=== PATIENT | female | born 1955 | race African-American/Black ===

== ENCOUNTER 2020-06-28 09:55 | Emergency (ER) | payer MEDICARE, MEDICAID ==
[~2020-06-28] VITALS: Ht 170.2 cm; Wt 89.7 kg
[2020-06-28] MEDS ORDERED: NALOXONE HCL 1 MG/ML 2ML VIAL ONE (10:03)
[2020-06-28] MEDS ORDERED: PROPOFOL 10MG/ML 100ML 100 ML IV ONE ×2 (10:12→13:06)
[2020-06-28 10:23] LABS: BASOPHILS % 0.5 % (0.0-2.0); EOSINOPHILS % 1.4 % (0.0-5.0); HEMATOCRIT. 39.8 % (36.0-48.0); LYMPHOCYTES % 11.4 % (20.0-50.0); MEAN CORPUSCULAR HEMOGLOBIN 28.4 pg (28.0-32.0); MEAN PLATELET VOLUME 8.5 fl (7.4-10.4); MONOCYTES % 4.8 % (2.0-8.0); NEUTROPHILS % 81.9 % (40.0-76.0); PLATELET 295 x1000/uL (130-400); RED BLOOD CELL COUNT 4.57 mill/uL (4.2-5.4); RED CELL DISTRIBUTION WIDTH 14.5 % (11.6-14.6)
[2020-06-28 10:31] LABS: CHLORIDE 102 mEq/L (98-107)
[2020-06-28 10:33] LABS: PROTHROMBIN TIME 10.6 sec (9.6-11.0)
[2020-06-28 10:36] LABS: ETHANOL BLOOD < 10 mg/dL
[2020-06-28 10:38] LABS: LDL CHOLESTEROL 100 mg/dL (5-100)
[2020-06-28] MEDS ORDERED: NICARDIPINE 50 MG in SODIUM CHLORIDE 0.9% 230 ML IV PRN (10:45)
[2020-06-28] MEDS ORDERED: NICARDIPINE 40MG/200ML PREMIX 200 ML IV SCH (10:46)
[2020-06-28] MEDS ORDERED: IOHEXOL-350 100 ML BOTTLE ONE (10:56)
[2020-06-28] MEDS ORDERED: LABETALOL 5MG/ML SYR 20 MG/4 ML SYRINGE IV ONE (11:15)
[2020-06-28 11:36] LABS: CLARITY URINE CLEAR (CLEAR); COLOR URINE YELLOW (YELLOW); KETONES URINE NEGATIVE (NEGATIVE); LEUKOCYTE ESTERASE URINE NEGATIVE (NEGATIVE); NITRITE URINE NEGATIVE (NEGATIVE); OCCULT BLOOD URINE 1+ (NEGATIVE); PH URINE 8.5 (4.5-8.0); PROTEIN URINE 3+ (NEGATIVE); SPECIFIC GRAVITY URINE 1.015 (1.005-1.030); UROBILINOGEN URINE 0.2 E.U./dL (0.2-1.0)
[2020-06-28 12:30] VITALS: BP 160/78
[2020-06-28] MEDS ORDERED: PROPOFOL 10MG/ML 100ML 100 ML IV SCH (13:00)
[2020-06-28 13:33] LABS: *AMPHETAMINES SCREEN URINE NEGATIVE (NEGATIVE); *BARBITURATES SCREEN URINE NEGATIVE (NEGATIVE); *BENZODIAZEPINES SCREEN URINE NEGATIVE (NEGATIVE); *COCAINE SCREEN URINE NEGATIVE (NEGATIVE); METHADONE URINE SCREEN NEGATIVE (NEGATIVE); OPIATES URINE SCREEN PRESUMTIVE POSITIVE (NEGATIVE)
[2020-06-28 13:34] LABS: CANNABINOID URINE SCREEN PRESUMTIVE POSITIVE (NEGATIVE); PHENCYCLIDINE URINE SCREEN NEGATIVE (NEGATIVE)
== END 2020-06-28 12:30 | disposition short-term general hospital (02) ==
LOC: ER 10:03 → CANBEDREQ 13:15
DX: I72.8 Aneurysm of other specified arteries (principal); I60.9 Nontraumatic subarachnoid hemorrhage, unspecified; R40.2430 Glasgow coma scale score 3-8, unspecified time; E11.9 Type 2 diabetes mellitus without complications; I10 Essential (primary) hypertension; E66.9 Obesity, unspecified
CPT/HCPCS: 31500; 36415; 70450; 70496; 70498; 71045; 80053; 80305; 80320; 81003; 82962; 83721; 84484; 85025; 85610; 93005; 94002; 96374; 96375; 99285; J2310; J2704; J3490; Q9967; G0480

== ENCOUNTER 2021-06-04 12:22 | Inpatient (IN) | payer MEDICARE, MEDICAID ==
[~2021-06-04] VITALS: Ht 165.1 cm; Wt 69.9 kg
[2021-06-04 13:09] LABS: BG BASE EXCESS 3.3 mmol/L (-2.0-2.0); BG CARBOXYHEMOGLOBIN 0.3 % (0.5-1.5); BG DEOXYHEMOGLOBIN 28.1 % (0.0-5.0); BG HCO3 ACT 27.4 mmol/L (22.0-26.0); BG METHEMOGLOBIN 0.1 % (0.0-1.5); BG OXYGEN SATURATION 71.8 % (92.0-98.5); BG OXYHEMOGLOBIN 71.5 % (94.0-97.0); BG PCO2 40.2 mmHg (35.0-45.0); BG PH 7.452 (7.350-7.450); BG PO2 39.6 mmHg (75.0-100.0); BG TOTAL HEMOGLOBIN 11.2 g/dL (12.0-18.0); BG VENT MODE MASK - NRB
[2021-06-04] MEDS ORDERED: SUCCINYLCHOLINE CHLORIDE 200MG/10ML IV ONE (13:30)
[2021-06-04] MEDS ORDERED: MIDAZOLAM HCL 2 MG/2 ML VIAL IV ONE (13:30)
[2021-06-04] MEDS ORDERED: MIDAZOLAM HCL 100 MG in DEXT 5% WATER 80 ML IV ONE (13:30)
[2021-06-04] MEDS ORDERED: MIDAZOLAM HCL 100 MG in SODIUM CHLORIDE 0.9% 100 ML IV PRN (13:30)
[2021-06-04] MEDS ORDERED: ETOMIDATE 2MG/ML 10ML VIAL IV ONE (13:30)
[2021-06-04] MEDS ORDERED: ATROPINE SULFATE 1MG/ML VIAL IV ONE (14:00)
[2021-06-04 14:04] LABS: BASOPHILS % 0.3 % (0.0-2.0); HEMOGLOBIN. 10.6 g/dL (12.0-16.0); LYMPHOCYTES % 16.7 % (20.0-50.0); MEAN CORPUSCULAR HEMOGLOBIN 27.7 pg (28.0-32.0); MEAN CORPUSCULAR VOLUME 83.9 fL (81.0-99.0); MEAN PLATELET VOLUME 6.8 fl (7.4-10.4); MONOCYTES % 6.7 % (2.0-8.0); NEUTROPHILS % 75.3 % (40.0-76.0); PLATELET 528 x1000/uL (130-400); RED BLOOD CELL COUNT 3.81 mill/uL (4.2-5.4); RED CELL DISTRIBUTION WIDTH 18.9 % (11.6-14.6)
[2021-06-04 14:11] LABS: CHLORIDE 103 mEq/L (98-107)
[2021-06-04] MEDS ORDERED: ATROPINE SULFATE 1MG/10ML SYR IV NR (14:15)
[2021-06-04 14:16] LABS: D-DIMER 0.99 mg/L FEU (<0.50); INR 1.1; PROTHROMBIN TIME 11.9 sec (9.6-11.0)
[2021-06-04 14:20] LABS: CREATINE KINASE 90 IU/L (26-192)
[2021-06-04] MEDS ORDERED: FENTANYL CITRATE/PF 2,500 MCG in SODIUM CHLORIDE 0.9% 200 ML IV PRN (16:30)
[2021-06-04 16:59] LABS: BG BASE EXCESS 4.4 mmol/L (-2.0-2.0); BG CARBOXYHEMOGLOBIN 0.2 % (0.5-1.5); BG DEOXYHEMOGLOBIN 0.5 % (0.0-5.0); BG FRACTION INSPIRED OXYGEN 100; BG METHEMOGLOBIN 0.5 % (0.0-1.5); BG OXYGEN SATURATION 99.5 % (92.0-98.5); BG OXYHEMOGLOBIN 98.8 % (94.0-97.0); BG PCO2 33.1 mmHg (35.0-45.0); BG PH 7.529 (7.350-7.450); BG PO2 190.1 mmHg (75.0-100.0); BG SAMPLE SITE LEFT BRACHIAL; BG TOTAL HEMOGLOBIN 11.3 g/dL (12.0-18.0); BG VENT MODE VENT - AC
[2021-06-04] MEDS ORDERED: ONDANSETRON HCL 4MG/2ML INJ IV PRN (17:00)
[2021-06-04] MEDS ORDERED: CEFTRIAXONE 1 G PREMIX 50 ML IV SCH (17:00)
[2021-06-04] MEDS ORDERED: ACETAMINOPHEN 325MG TABLET PO PRN (17:00)
[2021-06-04] MEDS ORDERED: GUAIFENESIN 200MG/10ML SUGAR FREE UDC PO PRN (17:00)
[2021-06-04] MEDS ORDERED: DOCUSATE SODIUM 100MG CAPSULE PO PRN (17:00)
[2021-06-04] MEDS ORDERED: ENOXAPARIN 40MG/0.4ML SYR SUBCUT SCH (17:00)
[2021-06-04] MEDS: FUROSEMIDE 40MG/4ML VIAL IV SCH (17:09)
[2021-06-04] MEDS ORDERED: DEXTROSE 50% WATER 50ML SYRINGE IV PRN (17:30)
[2021-06-04] MEDS ORDERED: AZITHROMYCIN 500 MG in DEXT 5% WATER 250 ML IV SCH (18:00)
[2021-06-04] MEDS: SPIRONOLACTONE 25MG TABLET PO SCH (18:17)
[2021-06-04] MEDS ORDERED: INSULIN LISPRO 100 UNITS/ML SUBCUT SCH (18:20)
[2021-06-04 19:26] LABS: CLARITY URINE TURBID (CLEAR); COLOR URINE YELLOW (YELLOW); KETONES URINE NEGATIVE (NEGATIVE); LEUKOCYTE ESTERASE URINE 3+ (NEGATIVE); NITRITE URINE POSITIVE (NEGATIVE); OCCULT BLOOD URINE 2+ (NEGATIVE); PH URINE >=9.0 (4.5-8.0); PROTEIN URINE 2+ (NEGATIVE); SPECIFIC GRAVITY URINE 1.013 (1.005-1.030)
[2021-06-04] MEDS: IPRATROPIUM/ALBUTEROL 0.5-3(2.5)MG/3ML NEB HHN SCH ×2 (20:11→23:50)
[2021-06-04] MEDS: INSULIN LISPRO 100 UNITS/ML SUBCUT SCH (21:00)
[2021-06-04] MEDS: BLOOD SUGAR DIAGNOSTIC STRIP TEST SCH (21:11)
[2021-06-04 23:19] LABS: CREATINE KINASE MB FRACTION 1.1 ng/mL (0.5-3.6)
[2021-06-04] MEDS ORDERED: IOHEXOL-350 100 ML BOTTLE ONE (23:29)
[2021-06-04 23:30] VITALS: BP 139/52
[2021-06-05] VITALS (57 sets, daily range): BP systolic 77–161; BP diastolic 54–105
[2021-06-05] MEDS: IPRATROPIUM/ALBUTEROL 0.5-3(2.5)MG/3ML NEB HHN SCH ×4 (03:48→22:00)
[2021-06-05 05:42] LABS: CHLORIDE 103 mEq/L (98-107)
[2021-06-05 05:50] LABS: LDL CHOLESTEROL 37 mg/dL (5-100)
[2021-06-05 05:51] LABS: BASOPHILS % 0.3 % (0.0-2.0); CREATINE KINASE 127 IU/L (26-192); CREATINE KINASE MB FRACTION 1.8 ng/mL (0.5-3.6); EOSINOPHILS % 0.3 % (0.0-5.0); HDL CHOLESTEROL 55 mg/dL (40-59); HEMATOCRIT. 35.4 % (36.0-48.0); HEMOGLOBIN. 11.6 g/dL (12.0-16.0); LYMPHOCYTES % 10.5 % (20.0-50.0); MEAN CORPUSCULAR HEMOGLOBIN 27.6 pg (28.0-32.0); MEAN CORPUSCULAR VOLUME 83.7 fL (81.0-99.0); MEAN PLATELET VOLUME 6.8 fl (7.4-10.4); MONOCYTES % 4.5 % (2.0-8.0); NEUTROPHILS % 84.4 % (40.0-76.0); PLATELET 442 x1000/uL (130-400); RED BLOOD CELL COUNT 4.23 mill/uL (4.2-5.4); RED CELL DISTRIBUTION WIDTH 19.1 % (11.6-14.6)
[2021-06-05] MEDS: INSULIN LISPRO 100 UNITS/ML SUBCUT SCH ×4 (07:00→21:00)
[2021-06-05] MEDS: BLOOD SUGAR DIAGNOSTIC STRIP TEST SCH ×4 (07:12→21:00)
[2021-06-05] MEDS: SPIRONOLACTONE 25MG TABLET PO SCH (08:47)
[2021-06-05] MEDS: FUROSEMIDE 40MG/4ML VIAL IV SCH ×2 (08:47→18:34)
[2021-06-05 09:47] LABS: BG BASE EXCESS 3.1 mmol/L (-2.0-2.0); BG CARBOXYHEMOGLOBIN 0.1 % (0.5-1.5); BG DEOXYHEMOGLOBIN 0.6 % (0.0-5.0); BG FRACTION INSPIRED OXYGEN 90; BG METHEMOGLOBIN 0.3 % (0.0-1.5); BG OXYGEN SATURATION 99.4 % (92.0-98.5); BG PCO2 29.7 mmHg (35.0-45.0); BG PH 7.543 (7.350-7.450); BG PO2 256.7 mmHg (75.0-100.0); BG SAMPLE SITE RIGHT BRACHIAL; BG TOTAL HEMOGLOBIN 11.7 g/dL (12.0-18.0); BG VENT MODE VENT - AC
[2021-06-05] MEDS: ASPIRIN 81MG TABLET PO SCH (10:38)
[2021-06-05] MEDS: METOPROLOL TARTRATE 25MG TABLET PO SCH ×2 (10:38→21:03)
[2021-06-05] MEDS ORDERED: FURO-152 MT (11:30)
[2021-06-05] MEDS ORDERED: QUET25TA MT (11:30)
[2021-06-05] MEDS ORDERED: DULO20CA18 MT (11:30)
[2021-06-05] MEDS ORDERED: FLUT1BLS INH (11:30)
[2021-06-05] MEDS ORDERED: INSU100I13 SQ (11:30)
[2021-06-05] MEDS ORDERED: ALBU90AE INH (11:30)
[2021-06-05] MEDS ORDERED: LABE300T3 MT (11:30)
[2021-06-05] MEDS ORDERED: FAMO-135 MT (11:30)
[2021-06-05] MEDS ORDERED: DICL100G31 TP (11:30)
[2021-06-05] MEDS ORDERED: MINO10TA MT (11:30)
[2021-06-05] MEDS ORDERED: GABA-533 MT (11:30)
[2021-06-05] MEDS ORDERED: TIZA4CAP6 MT (11:30)
[2021-06-05] MEDS ORDERED: LIP40 MT (11:30)
[2021-06-05] MEDS ORDERED: AMLO10TA4 MT (11:30)
[2021-06-05] MEDS ORDERED: TIOT18CA3 INH (11:30)
[2021-06-05] MEDS: PANTOPRAZOLE SODIUM 40 MG/VIAL IV SCH (11:36)
[2021-06-05] MEDS: CEFTRIAXONE 1,000 MG in DEXTROSE 5% WATER 50 ML IV SCH (16:35)
[2021-06-05] MEDS ORDERED: FUROSEMIDE 40MG/4ML VIAL IV SCH (17:00)
[2021-06-05] MEDS: AZITHROMYCIN 500 MG in DEXT 5% WATER 250 ML IV SCH (18:34)
[2021-06-06] VITALS (54 sets, daily range): BP systolic 82–162; BP diastolic 55–105
[2021-06-06] MEDS: IPRATROPIUM/ALBUTEROL 0.5-3(2.5)MG/3ML NEB HHN SCH ×7 (01:18→23:55)
[2021-06-06] MEDS: FUROSEMIDE 40MG/4ML VIAL IV SCH (05:58)
[2021-06-06] MEDS: BLOOD SUGAR DIAGNOSTIC STRIP TEST SCH ×4 (06:30→21:00)
[2021-06-06] MEDS ORDERED: AMLODIPINE 5MG TABLET PO SCH (09:15)
[2021-06-06 09:48] LABS: BG BASE EXCESS 0.7 mmol/L (-2.0-2.0); BG CARBOXYHEMOGLOBIN 0.3 % (0.5-1.5); BG DEOXYHEMOGLOBIN 1.6 % (0.0-5.0); BG FRACTION INSPIRED OXYGEN 40; BG HCO3 ACT 23.9 mmol/L (22.0-26.0); BG METHEMOGLOBIN 0.1 % (0.0-1.5); BG OXYGEN SATURATION 98.4 % (92.0-98.5); BG PCO2 33.3 mmHg (35.0-45.0); BG PH 7.473 (7.350-7.450); BG PO2 126.2 mmHg (75.0-100.0); BG SAMPLE SITE RIGHT RADIAL; BG TOTAL HEMOGLOBIN 11.9 g/dL (12.0-18.0); BG VENT MODE VENT - AC
[2021-06-06] MEDS: SPIRONOLACTONE 25MG TABLET PO SCH (11:11)
[2021-06-06] MEDS: ASPIRIN 81MG TABLET PO SCH (11:11)
[2021-06-06] MEDS: PANTOPRAZOLE SODIUM 40 MG/VIAL IV SCH (11:12)
[2021-06-06 12:11] LABS: BG BASE EXCESS 0.2 mmol/L (-2.0-2.0); BG CARBOXYHEMOGLOBIN 0.6 % (0.5-1.5); BG DEOXYHEMOGLOBIN 10.3 % (0.0-5.0); BG FRACTION INSPIRED OXYGEN 40; BG HCO3 ACT 23.6 mmol/L (22.0-26.0); BG METHEMOGLOBIN 0.4 % (0.0-1.5); BG OXYGEN SATURATION 89.6 % (92.0-98.5); BG OXYHEMOGLOBIN 88.7 % (94.0-97.0); BG PCO2 34.3 mmHg (35.0-45.0); BG PH 7.456 (7.350-7.450); BG SAMPLE SITE RIGHT RADIAL; BG TOTAL HEMOGLOBIN 11.9 g/dL (12.0-18.0); BG VENT MODE VENT - CPAP
[2021-06-06] MEDS: AZITHROMYCIN 500 MG in DEXT 5% WATER 250 ML IV SCH (17:51)
[2021-06-06] MEDS: CEFTRIAXONE 1,000 MG in DEXTROSE 5% WATER 50 ML IV SCH (17:51)
[2021-06-06] MEDS: INSULIN LISPRO 100 UNITS/ML SUBCUT SCH (21:00)
[2021-06-06] MEDS: METOPROLOL TARTRATE 50MG TABLET PO SCH (21:18)
[2021-06-07] VITALS (49 sets, daily range): BP systolic 125–169; BP diastolic 67–113
[2021-06-07] MEDS: IPRATROPIUM/ALBUTEROL 0.5-3(2.5)MG/3ML NEB HHN SCH ×5 (04:01→20:40)
[2021-06-07] MEDS: INSULIN LISPRO 100 UNITS/ML SUBCUT SCH ×4 (07:00→21:00)
[2021-06-07] MEDS: BLOOD SUGAR DIAGNOSTIC STRIP TEST SCH ×4 (07:02→21:00)
[2021-06-07 08:17] LABS: BG BASE EXCESS 2.7 mmol/L (-2.0-2.0); BG CARBOXYHEMOGLOBIN 0.8 % (0.5-1.5); BG DEOXYHEMOGLOBIN 2.4 % (0.0-5.0); BG HCO3 ACT 27.2 mmol/L (22.0-26.0); BG METHEMOGLOBIN 0.5 % (0.0-1.5); BG OXYGEN SATURATION 97.6 % (92.0-98.5); BG OXYHEMOGLOBIN 96.3 % (94.0-97.0); BG PCO2 41.4 mmHg (35.0-45.0); BG PH 7.435 (7.350-7.450); BG PO2 96.9 mmHg (75.0-100.0); BG SAMPLE SITE RIGHT RADIAL; BG TOTAL HEMOGLOBIN 11.8 g/dL (12.0-18.0); BG VENT MODE NASAL CANNULA
[2021-06-07] MEDS: SPIRONOLACTONE 25MG TABLET PO SCH (09:26)
[2021-06-07] MEDS: ASPIRIN 81MG TABLET PO SCH (09:26)
[2021-06-07] MEDS: FUROSEMIDE 40MG TABLET PO SCH (09:26)
[2021-06-07] MEDS: METOPROLOL TARTRATE 50MG TABLET PO SCH ×2 (09:26→20:38)
[2021-06-07] MEDS: PANTOPRAZOLE SODIUM 40 MG/VIAL IV SCH (09:26)
[2021-06-07] MEDS: AMLODIPINE 10MG TABLET PO SCH (09:27)
[2021-06-07] MEDS: METRONIDAZOLE 500 MG PREMIX 100 ML IV SCH ×3 (09:34→21:59)
[2021-06-07 09:41] LABS: BASOPHILS % 0.6 % (0.0-2.0); EOSINOPHILS % 0.9 % (0.0-5.0); HEMATOCRIT. 38.5 % (36.0-48.0); HEMOGLOBIN. 12.6 g/dL (12.0-16.0); LYMPHOCYTES % 12.9 % (20.0-50.0); MEAN CORPUSCULAR HEMOGLOBIN 27.3 pg (28.0-32.0); MEAN CORPUSCULAR VOLUME 83.5 fL (81.0-99.0); MEAN PLATELET VOLUME 6.6 fl (7.4-10.4); MONOCYTES % 5.4 % (2.0-8.0); NEUTROPHILS % 80.2 % (40.0-76.0); PLATELET 518 x1000/uL (130-400); RED BLOOD CELL COUNT 4.61 mill/uL (4.2-5.4); RED CELL DISTRIBUTION WIDTH 19.5 % (11.6-14.6)
[2021-06-07 10:08] LABS: BG BASE EXCESS 2.4 mmol/L (-2.0-2.0); BG CARBOXYHEMOGLOBIN 0.3 % (0.5-1.5); BG DEOXYHEMOGLOBIN 0.6 % (0.0-5.0); BG HCO3 ACT 27.5 mmol/L (22.0-26.0); BG METHEMOGLOBIN 0.4 % (0.0-1.5); BG OXYGEN SATURATION 99.4 % (92.0-98.5); BG OXYHEMOGLOBIN 98.7 % (94.0-97.0); BG PCO2 44.2 mmHg (35.0-45.0); BG PH 7.411 (7.350-7.450); BG PO2 220.5 mmHg (75.0-100.0); BG SAMPLE SITE RIGHT RADIAL; BG TOTAL HEMOGLOBIN 12.1 g/dL (12.0-18.0); BG VENT MODE MASK - BIPAP
[2021-06-07] MEDS: HYDRALAZINE HCL 25MG TABLET PO SCH ×2 (10:32→17:35)
[2021-06-07] MEDS: CEFEPIME 1,000 MG in DEXTROSE 5% WATER 50 ML IV SCH ×2 (10:32→20:38)
[2021-06-08] VITALS (77 sets, daily range): BP systolic 94–147; BP diastolic 45–81
[2021-06-08] MEDS: IPRATROPIUM/ALBUTEROL 0.5-3(2.5)MG/3ML NEB HHN SCH ×6 (00:34→21:46)
[2021-06-08] MEDS: HYDRALAZINE HCL 25MG TABLET PO SCH ×3 (02:00→17:29)
[2021-06-08] MEDS: METRONIDAZOLE 500 MG PREMIX 100 ML IV SCH ×3 (05:11→21:26)
[2021-06-08 05:22] LABS: BASOPHILS % 0.3 % (0.0-2.0); HEMATOCRIT. 31.9 % (36.0-48.0); HEMOGLOBIN. 10.7 g/dL (12.0-16.0); LYMPHOCYTES % 10.5 % (20.0-50.0); MEAN CORPUSCULAR HEMOGLOBIN 27.9 pg (28.0-32.0); MEAN CORPUSCULAR VOLUME 83.2 fL (81.0-99.0); MEAN PLATELET VOLUME 6.6 fl (7.4-10.4); MONOCYTES % 4.2 % (2.0-8.0); PLATELET 492 x1000/uL (130-400); RED BLOOD CELL COUNT 3.84 mill/uL (4.2-5.4); RED CELL DISTRIBUTION WIDTH 19.6 % (11.6-14.6)
[2021-06-08] MEDS: INSULIN LISPRO 100 UNITS/ML SUBCUT SCH ×3 (06:22→17:00)
[2021-06-08] MEDS: BLOOD SUGAR DIAGNOSTIC STRIP TEST SCH ×3 (06:22→17:23)
[2021-06-08] MEDS: CEFEPIME 1,000 MG in DEXTROSE 5% WATER 50 ML IV SCH ×2 (09:35→20:31)
[2021-06-08] MEDS: FUROSEMIDE 40MG TABLET PO SCH (09:37)
[2021-06-08] MEDS: AMLODIPINE 10MG TABLET PO SCH (09:37)
[2021-06-08] MEDS: SPIRONOLACTONE 25MG TABLET PO SCH (09:37)
[2021-06-08] MEDS: ASPIRIN 81MG TABLET PO SCH (09:37)
[2021-06-08] MEDS: PANTOPRAZOLE SODIUM 40 MG/VIAL IV SCH (09:46)
[2021-06-08] MEDS: METOPROLOL TARTRATE 50MG TABLET PO SCH ×2 (09:47→20:31)
[2021-06-08 11:12] LABS: BG BASE EXCESS 0.6 mmol/L (-2.0-2.0); BG CARBOXYHEMOGLOBIN 0.3 % (0.5-1.5); BG DEOXYHEMOGLOBIN 7.9 % (0.0-5.0); BG FRACTION INSPIRED OXYGEN 60; BG HCO3 ACT 23.9 mmol/L (22.0-26.0); BG METHEMOGLOBIN 0.3 % (0.0-1.5); BG OXYGEN SATURATION 92.1 % (92.0-98.5); BG OXYHEMOGLOBIN 91.5 % (94.0-97.0); BG PCO2 33.8 mmHg (35.0-45.0); BG PH 7.467 (7.350-7.450); BG PO2 65.3 mmHg (75.0-100.0); BG SAMPLE SITE RIGHT RADIAL; BG TOTAL HEMOGLOBIN 11.7 g/dL (12.0-18.0); BG VENT MODE MASK - BIPAP
[2021-06-09] VITALS (61 sets, daily range): BP systolic 90–138; BP diastolic 19–96
[2021-06-09] MEDS: IPRATROPIUM/ALBUTEROL 0.5-3(2.5)MG/3ML NEB HHN SCH ×6 (01:06→19:53)
[2021-06-09] MEDS: HYDRALAZINE HCL 25MG TABLET PO SCH ×2 (01:44→10:00)
[2021-06-09] MEDS: INSULIN LISPRO 100 UNITS/ML SUBCUT SCH ×4 (05:46→17:57)
[2021-06-09] MEDS: BLOOD SUGAR DIAGNOSTIC STRIP TEST SCH ×4 (05:46→17:57)
[2021-06-09] MEDS: METRONIDAZOLE 500 MG PREMIX 100 ML IV SCH ×3 (05:47→22:33)
[2021-06-09] MEDS: ASPIRIN 81MG TABLET PO SCH (08:00)
[2021-06-09] MEDS: CEFEPIME 1,000 MG in DEXTROSE 5% WATER 50 ML IV SCH ×2 (08:00→22:33)
[2021-06-09] MEDS: PANTOPRAZOLE SODIUM 40 MG/VIAL IV SCH (08:00)
[2021-06-09] MEDS: METOPROLOL TARTRATE 50MG TABLET PO SCH ×2 (08:01→22:33)
[2021-06-09] MEDS: SPIRONOLACTONE 25MG TABLET PO SCH (08:01)
[2021-06-09] MEDS: AMLODIPINE 10MG TABLET PO SCH (08:01)
[2021-06-09] MEDS: FUROSEMIDE 40MG TABLET PO SCH (08:01)
[2021-06-09 09:33] LABS: BG BASE EXCESS 1.1 mmol/L (-2.0-2.0); BG CARBOXYHEMOGLOBIN 0.3 % (0.5-1.5); BG FRACTION INSPIRED OXYGEN 70; BG HCO3 ACT 24.5 mmol/L (22.0-26.0); BG METHEMOGLOBIN 0.5 % (0.0-1.5); BG OXYHEMOGLOBIN 93.2 % (94.0-97.0); BG PCO2 34.8 mmHg (35.0-45.0); BG PH 7.466 (7.350-7.450); BG PO2 72.9 mmHg (75.0-100.0); BG SAMPLE SITE RIGHT RADIAL; BG TOTAL HEMOGLOBIN 10.8 g/dL (12.0-18.0); BG VENT MODE MASK - BIPAP
[2021-06-09 09:35] LABS: HEMATOCRIT. 29.8 % (36.0-48.0); HEMOGLOBIN. 9.4 g/dL (12.0-16.0); MEAN CORPUSCULAR VOLUME 85.5 fL (81.0-99.0); PLATELET 428 x1000/uL (130-400); RED BLOOD CELL COUNT 3.48 mill/uL (4.2-5.4); RED CELL DISTRIBUTION WIDTH 20.1 % (11.6-14.6)
[2021-06-09 15:00] LABS: PLATELET ESTIMATE SLIGHTLY INCREASED
[2021-06-10] VITALS (42 sets, daily range): BP systolic 90–129; BP diastolic 34–82
[2021-06-10] MEDS: IPRATROPIUM/ALBUTEROL 0.5-3(2.5)MG/3ML NEB HHN SCH ×6 (00:15→20:47)
[2021-06-10] MEDS: BLOOD SUGAR DIAGNOSTIC STRIP TEST SCH ×4 (00:32→18:37)
[2021-06-10] MEDS: HYDRALAZINE HCL 25MG TABLET PO SCH ×3 (02:12→18:00)
[2021-06-10 05:25] LABS: HEMATOCRIT. 27.3 % (36.0-48.0); HEMOGLOBIN. 9.1 g/dL (12.0-16.0); MEAN CORPUSCULAR HEMOGLOBIN 27.7 pg (28.0-32.0); MEAN CORPUSCULAR VOLUME 83.3 fL (81.0-99.0); MEAN PLATELET VOLUME 7.4 fl (7.4-10.4); PLATELET 404 x1000/uL (130-400); RED BLOOD CELL COUNT 3.29 mill/uL (4.2-5.4); RED CELL DISTRIBUTION WIDTH 19.6 % (11.6-14.6)
[2021-06-10] MEDS: INSULIN LISPRO 100 UNITS/ML SUBCUT SCH ×4 (06:00→18:00)
[2021-06-10] MEDS: METRONIDAZOLE 500 MG PREMIX 100 ML IV SCH ×3 (06:31→22:30)
[2021-06-10] MEDS: PANTOPRAZOLE SODIUM 40 MG/VIAL IV SCH (08:31)
[2021-06-10] MEDS: CEFEPIME 1,000 MG in DEXTROSE 5% WATER 50 ML IV SCH ×2 (08:31→21:21)
[2021-06-10] MEDS: FUROSEMIDE 40MG TABLET PO SCH (08:32)
[2021-06-10] MEDS: AMLODIPINE 10MG TABLET PO SCH (08:32)
[2021-06-10] MEDS: ASPIRIN 81MG TABLET PO SCH (08:32)
[2021-06-10] MEDS: SPIRONOLACTONE 25MG TABLET PO SCH (08:32)
[2021-06-10] MEDS: METOPROLOL TARTRATE 50MG TABLET PO SCH ×2 (08:32→21:00)
[2021-06-10] MEDS ORDERED: FUROSEMIDE 40MG/4ML VIAL IVP SCH (10:30)
[2021-06-11] VITALS (28 sets, daily range): BP systolic 96–148; BP diastolic 54–79
[2021-06-11] MEDS: IPRATROPIUM/ALBUTEROL 0.5-3(2.5)MG/3ML NEB HHN SCH ×5 (00:25→21:11)
[2021-06-11] MEDS: HYDRALAZINE HCL 25MG TABLET PO SCH ×3 (02:00→18:53)
[2021-06-11] MEDS: METRONIDAZOLE 500 MG PREMIX 100 ML IV SCH ×3 (05:22→22:45)
[2021-06-11] MEDS: BLOOD SUGAR DIAGNOSTIC STRIP TEST SCH ×4 (06:00→18:34)
[2021-06-11] MEDS: INSULIN LISPRO 100 UNITS/ML SUBCUT SCH ×4 (06:00→18:00)
[2021-06-11] MEDS: CEFEPIME 1,000 MG in DEXTROSE 5% WATER 50 ML IV SCH ×2 (08:24→22:45)
[2021-06-11] MEDS: PANTOPRAZOLE SODIUM 40 MG/VIAL IV SCH (08:24)
[2021-06-11] MEDS: FUROSEMIDE 40MG TABLET PO SCH (08:28)
[2021-06-11] MEDS: SPIRONOLACTONE 25MG TABLET PO SCH (08:28)
[2021-06-11] MEDS: ASPIRIN 81MG TABLET PO SCH (08:28)
[2021-06-11] MEDS: METOPROLOL TARTRATE 50MG TABLET PO SCH ×2 (08:35→21:50)
[2021-06-11] MEDS: AMLODIPINE 10MG TABLET PO SCH (09:00)
[2021-06-11 09:16] LABS: HEMATOCRIT. 26.5 % (36.0-48.0); HEMOGLOBIN. 8.6 g/dL (12.0-16.0); MEAN CORPUSCULAR HEMOGLOBIN 28.2 pg (28.0-32.0); MEAN CORPUSCULAR VOLUME 86.3 fL (81.0-99.0); MEAN PLATELET VOLUME 7.7 fl (7.4-10.4); PLATELET 420 x1000/uL (130-400); RED BLOOD CELL COUNT 3.07 mill/uL (4.2-5.4); RED CELL DISTRIBUTION WIDTH 21.1 % (11.6-14.6)
[2021-06-11] MEDS ORDERED: FUROSEMIDE 40MG/4ML VIAL IVP NR (11:15)
[2021-06-11 11:57] LABS: PLATELET ESTIMATE NORMAL
[2021-06-11] MEDS: ZINC SULFATE 220 MG ( 50 ) CAPSULE PO SCH (15:31)
[2021-06-11] MEDS: MULTIVITAMINS,THER W-MINERALS TABLET PO SCH (15:31)
[2021-06-11] MEDS: ASCORBIC ACID 500 MG TABLET PO SCH (15:31)
[2021-06-11 20:01] LABS: PLATELET ESTIMATE SLIGHTLY INCREASED
[2021-06-12] VITALS (12 sets, daily range): BP systolic 112–148; BP diastolic 50–83
[2021-06-12] MEDS: BLOOD SUGAR DIAGNOSTIC STRIP TEST SCH ×5 (00:15→23:24)
[2021-06-12] MEDS: IPRATROPIUM/ALBUTEROL 0.5-3(2.5)MG/3ML NEB HHN SCH ×6 (00:41→20:36)
[2021-06-12] MEDS: HYDRALAZINE HCL 25MG TABLET PO SCH ×3 (03:39→18:39)
[2021-06-12] MEDS: INSULIN LISPRO 100 UNITS/ML SUBCUT SCH ×5 (06:00→23:24)
[2021-06-12] MEDS: METRONIDAZOLE 500 MG PREMIX 100 ML IV SCH ×3 (06:19→21:36)
[2021-06-12] MEDS: ASPIRIN 81MG TABLET PO SCH (09:00)
[2021-06-12] MEDS: PANTOPRAZOLE SODIUM 40 MG/VIAL IV SCH (09:51)
[2021-06-12] MEDS: ASCORBIC ACID 500 MG TABLET PO SCH (09:52)
[2021-06-12] MEDS: FUROSEMIDE 40MG TABLET PO SCH (09:53)
[2021-06-12] MEDS: ZINC SULFATE 220 MG ( 50 ) CAPSULE PO SCH (09:53)
[2021-06-12] MEDS: MULTIVITAMINS,THER W-MINERALS TABLET PO SCH (09:53)
[2021-06-12] MEDS: METOPROLOL TARTRATE 50MG TABLET PO SCH ×2 (09:54→20:40)
[2021-06-12] MEDS: AMLODIPINE 10MG TABLET PO SCH (09:54)
[2021-06-12] MEDS: SPIRONOLACTONE 25MG TABLET PO SCH (09:56)
[2021-06-12 09:58] LABS: BG BASE EXCESS 1.6 mmol/L (-2.0-2.0); BG CARBOXYHEMOGLOBIN 0.6 % (0.5-1.5); BG DEOXYHEMOGLOBIN 1.8 % (0.0-5.0); BG FRACTION INSPIRED OXYGEN 60; BG HCO3 ACT 25.9 mmol/L (22.0-26.0); BG METHEMOGLOBIN 0.2 % (0.0-1.5); BG OXYGEN SATURATION 98.2 % (92.0-98.5); BG OXYHEMOGLOBIN 97.4 % (94.0-97.0); BG PCO2 39.5 mmHg (35.0-45.0); BG PH 7.435 (7.350-7.450); BG PO2 108.2 mmHg (75.0-100.0); BG SAMPLE SITE RIGHT RADIAL; BG TOTAL HEMOGLOBIN 10.5 g/dL (12.0-18.0); BG TOTAL RESPIRATORY RATE 24 b/min; BG VENT MODE MASK - BIPAP
[2021-06-12] MEDS: CEFEPIME 1,000 MG in DEXTROSE 5% WATER 50 ML IV SCH ×2 (11:30→20:40)
[2021-06-12] MEDS: FUROSEMIDE 40MG/4ML VIAL IVP SCH (14:52)
[2021-06-13] VITALS (13 sets, daily range): BP systolic 122–152; BP diastolic 62–109
[2021-06-13] MEDS: IPRATROPIUM/ALBUTEROL 0.5-3(2.5)MG/3ML NEB HHN SCH ×6 (01:00→21:22)
[2021-06-13] MEDS: HYDRALAZINE HCL 25MG TABLET PO SCH ×3 (01:11→17:54)
[2021-06-13] MEDS: BLOOD SUGAR DIAGNOSTIC STRIP TEST SCH ×3 (05:28→17:45)
[2021-06-13] MEDS: INSULIN LISPRO 100 UNITS/ML SUBCUT SCH ×3 (05:28→17:45)
[2021-06-13] MEDS: MULTIVITAMINS,THER W-MINERALS TABLET PO SCH (10:01)
[2021-06-13] MEDS: ASPIRIN 81MG TABLET PO SCH (10:01)
[2021-06-13] MEDS: FUROSEMIDE 40MG/4ML VIAL IVP SCH ×2 (10:01→17:52)
[2021-06-13] MEDS: PANTOPRAZOLE SODIUM 40 MG/VIAL IV SCH (10:01)
[2021-06-13] MEDS: SPIRONOLACTONE 25MG TABLET PO SCH (10:02)
[2021-06-13] MEDS: AMLODIPINE 10MG TABLET PO SCH (10:02)
[2021-06-13] MEDS: METOPROLOL TARTRATE 50MG TABLET PO SCH ×2 (10:03→20:44)
[2021-06-13] MEDS: ASCORBIC ACID 500 MG TABLET PO SCH (10:03)
[2021-06-13] MEDS: ZINC SULFATE 220 MG ( 50 ) CAPSULE PO SCH (10:36)
[2021-06-13] MEDS: SODIUM HYPOCHLORITE 0.125% 473ML SOLUTION TOP SCH ×2 (13:51→18:00)
[2021-06-14] VITALS (17 sets, daily range): BP systolic 118–149; BP diastolic 62–93
[2021-06-14] MEDS: IPRATROPIUM/ALBUTEROL 0.5-3(2.5)MG/3ML NEB HHN SCH ×6 (00:13→20:40)
[2021-06-14] MEDS: HYDRALAZINE HCL 25MG TABLET PO SCH ×3 (02:16→18:37)
[2021-06-14] MEDS: BLOOD SUGAR DIAGNOSTIC STRIP TEST SCH ×5 (05:10→23:19)
[2021-06-14] MEDS: FUROSEMIDE 40MG/4ML VIAL IVP SCH ×2 (05:11→18:37)
[2021-06-14] MEDS: INSULIN LISPRO 100 UNITS/ML SUBCUT SCH ×5 (05:26→23:19)
[2021-06-14] MEDS: ACETYLCYSTEINE 100MG/ML 10% VIAL 4ML INH SCH (08:00)
[2021-06-14] MEDS: ZINC SULFATE 220 MG ( 50 ) CAPSULE PO SCH (08:07)
[2021-06-14] MEDS: ASCORBIC ACID 500 MG TABLET PO SCH (08:08)
[2021-06-14] MEDS: MULTIVITAMINS,THER W-MINERALS TABLET PO SCH (08:08)
[2021-06-14] MEDS: METOPROLOL TARTRATE 50MG TABLET PO SCH ×2 (08:08→21:12)
[2021-06-14] MEDS: AMLODIPINE 10MG TABLET PO SCH (08:08)
[2021-06-14] MEDS: ASPIRIN 81MG TABLET PO SCH (08:08)
[2021-06-14] MEDS: SODIUM HYPOCHLORITE 0.125% 473ML SOLUTION TOP SCH ×2 (08:09→18:39)
[2021-06-14] MEDS: PANTOPRAZOLE SODIUM 40 MG/VIAL IV SCH (08:09)
[2021-06-14] MEDS: SPIRONOLACTONE 25MG TABLET PO SCH (08:09)
[2021-06-14 16:21] LABS: BASOPHILS % 0.7 % (0.0-2.0); CHLORIDE 102 mEq/L (98-107); EOSINOPHILS % 1.1 % (0.0-5.0); HEMATOCRIT. 27.3 % (36.0-48.0); HEMOGLOBIN. 8.9 g/dL (12.0-16.0); LYMPHOCYTES % 11.2 % (20.0-50.0); MEAN CORPUSCULAR HEMOGLOBIN 28.9 pg (28.0-32.0); MEAN CORPUSCULAR VOLUME 88.4 fL (81.0-99.0); MEAN PLATELET VOLUME 8.1 fl (7.4-10.4); MONOCYTES % 7.2 % (2.0-8.0); NEUTROPHILS % 79.8 % (40.0-76.0); PLATELET 560 x1000/uL (130-400); RED BLOOD CELL COUNT 3.09 mill/uL (4.2-5.4); RED CELL DISTRIBUTION WIDTH 22.5 % (11.6-14.6)
[2021-06-15] VITALS (12 sets, daily range): BP systolic 109–136; BP diastolic 52–85
[2021-06-15] MEDS: IPRATROPIUM/ALBUTEROL 0.5-3(2.5)MG/3ML NEB HHN SCH ×6 (00:30→20:00)
[2021-06-15] MEDS: HYDRALAZINE HCL 25MG TABLET PO SCH ×3 (02:07→18:29)
[2021-06-15] MEDS: FUROSEMIDE 40MG/4ML VIAL IVP SCH ×2 (05:09→18:28)
[2021-06-15] MEDS: BLOOD SUGAR DIAGNOSTIC STRIP TEST SCH ×4 (05:09→23:17)
[2021-06-15] MEDS: INSULIN LISPRO 100 UNITS/ML SUBCUT SCH ×4 (05:10→23:17)
[2021-06-15 07:51] LABS: BASOPHILS % 0.2 % (0.0-2.0); EOSINOPHILS % 0.7 % (0.0-5.0); HEMATOCRIT. 28.1 % (36.0-48.0); HEMOGLOBIN. 8.8 g/dL (12.0-16.0); LYMPHOCYTES % 7.2 % (20.0-50.0); MEAN CORPUSCULAR VOLUME 92.4 fL (81.0-99.0); MEAN PLATELET VOLUME 8.4 fl (7.4-10.4); MONOCYTES % 6.8 % (2.0-8.0); NEUTROPHILS % 85.1 % (40.0-76.0); PLATELET 540 x1000/uL (130-400); RED BLOOD CELL COUNT 3.04 mill/uL (4.2-5.4); RED CELL DISTRIBUTION WIDTH 27.5 % (11.6-14.6)
[2021-06-15] MEDS: SODIUM HYPOCHLORITE 0.125% 473ML SOLUTION TOP SCH (09:00)
[2021-06-15] MEDS: MULTIVITAMINS,THER W-MINERALS TABLET PO SCH (09:56)
[2021-06-15] MEDS: SPIRONOLACTONE 25MG TABLET PO SCH (09:56)
[2021-06-15] MEDS: AMLODIPINE 10MG TABLET PO SCH (09:56)
[2021-06-15] MEDS: PANTOPRAZOLE SODIUM 40 MG/VIAL IV SCH (09:56)
[2021-06-15] MEDS: ASCORBIC ACID 500 MG TABLET PO SCH (09:56)
[2021-06-15] MEDS: ASPIRIN 81MG TABLET PO SCH (09:57)
[2021-06-15] MEDS: METOPROLOL TARTRATE 50MG TABLET PO SCH ×2 (09:57→21:42)
[2021-06-15] MEDS: ZINC SULFATE 220 MG ( 50 ) CAPSULE PO SCH (09:57)
[2021-06-15 10:55] LABS: BG BASE EXCESS 4.7 mmol/L (-2.0-2.0); BG CARBOXYHEMOGLOBIN 0.6 % (0.5-1.5); BG DEOXYHEMOGLOBIN 9.7 % (0.0-5.0); BG FRACTION INSPIRED OXYGEN 90; BG HCO3 ACT 27.9 mmol/L (22.0-26.0); BG METHEMOGLOBIN 0.5 % (0.0-1.5); BG OXYGEN SATURATION 90.2 % (92.0-98.5); BG OXYHEMOGLOBIN 89.2 % (94.0-97.0); BG PCO2 36.4 mmHg (35.0-45.0); BG PH 7.503 (7.350-7.450); BG PO2 55.8 mmHg (75.0-100.0); BG SAMPLE SITE RIGHT RADIAL; BG TOTAL HEMOGLOBIN 10.6 g/dL (12.0-18.0); BG TOTAL RESPIRATORY RATE 33 b/min; BG VENT MODE MASK - BIPAP
[2021-06-15] MEDS: ACETYLCYSTEINE 100MG/ML 10% VIAL 4ML INH SCH ×2 (12:40→15:30)
[2021-06-16] VITALS (9 sets, daily range): BP systolic 132–158; BP diastolic 63–93
[2021-06-16] MEDS: ACETYLCYSTEINE 100MG/ML 10% VIAL 4ML INH SCH ×2 (01:04→09:24)
[2021-06-16] MEDS: IPRATROPIUM/ALBUTEROL 0.5-3(2.5)MG/3ML NEB HHN SCH ×4 (01:04→12:55)
[2021-06-16] MEDS: HYDRALAZINE HCL 25MG TABLET PO SCH ×2 (01:12→09:06)
[2021-06-16] MEDS: FUROSEMIDE 40MG/4ML VIAL IVP SCH (05:10)
[2021-06-16] MEDS: INSULIN LISPRO 100 UNITS/ML SUBCUT SCH ×2 (06:00→12:00)
[2021-06-16] MEDS: BLOOD SUGAR DIAGNOSTIC STRIP TEST SCH ×2 (06:00→12:00)
[2021-06-16] MEDS: ASCORBIC ACID 500 MG TABLET PO SCH (08:47)
[2021-06-16] MEDS: ZINC SULFATE 220 MG ( 50 ) CAPSULE PO SCH (08:47)
[2021-06-16] MEDS: MULTIVITAMINS,THER W-MINERALS TABLET PO SCH (08:47)
[2021-06-16] MEDS: METOPROLOL TARTRATE 50MG TABLET PO SCH (08:48)
[2021-06-16] MEDS: ASPIRIN 81MG TABLET PO SCH (08:48)
[2021-06-16] MEDS: AMLODIPINE 10MG TABLET PO SCH (08:48)
[2021-06-16] MEDS: SPIRONOLACTONE 25MG TABLET PO SCH (08:49)
[2021-06-16] MEDS: PANTOPRAZOLE SODIUM 40 MG/VIAL IV SCH (08:49)
[2021-06-16] MEDS: SODIUM HYPOCHLORITE 0.125% 473ML SOLUTION TOP SCH (09:00)
== END 2021-06-16 16:00 | DRG 853 ==
LOC: ER 12:22 → EDBEDREQSVC 13:46 → EDBEDREQTM 13:46 → EDBEDREQ 13:46 → MICUSO 22:23 → ENRESERV 22:27 → MICUNO 22:31 → 5EST 06-11 12:45
PROVIDERS: ADMIT Hospitalist; ATTEND Hospitalist
PROC: 5A1945Z Respiratory Ventilation, 24-96 Consecutive Hours (ICD-10-PCS; principal; 2021-06-04)
PROC: 02HV33Z Insertion of Infusion Device into Superior Vena Cava, Percutaneous Approach (ICD-10-PCS; 2021-06-04)
PROC: B548ZZA Ultrasonography of Superior Vena Cava, Guidance (ICD-10-PCS; 2021-06-04)
PROC: 0BH17EZ Insertion of Endotracheal Airway into Trachea, Via Natural or Artificial Opening (ICD-10-PCS; 2021-06-04)
PROC: 5A1935Z Respiratory Ventilation, Less than 24 Consecutive Hours (ICD-10-PCS; 2021-06-04)
PROC: 5A09557 Assistance with Respiratory Ventilation, Greater than 96 Consecutive Hours, Continuous Positive Airway Pressure (ICD-10-PCS; 2021-06-07)
PROC: 0KBP0ZZ Excision of Left Hip Muscle, Open Approach (ICD-10-PCS; 2021-06-13)
PROC: 0KBN0ZZ Excision of Right Hip Muscle, Open Approach (ICD-10-PCS; 2021-06-13)
PROC: 5A09357 Assistance with Respiratory Ventilation, Less than 24 Consecutive Hours, Continuous Positive Airway Pressure (ICD-10-PCS; 2021-06-14)
PROC: 5A09357 Assistance with Respiratory Ventilation, Less than 24 Consecutive Hours, Continuous Positive Airway Pressure (ICD-10-PCS; 2021-06-15)
PROC: 5A09357 Assistance with Respiratory Ventilation, Less than 24 Consecutive Hours, Continuous Positive Airway Pressure (ICD-10-PCS; 2021-06-16)
DX: A41.59 Other Gram-negative sepsis (principal); L89.154 Pressure ulcer of sacral region, stage 4; E43 Unspecified severe protein-calorie malnutrition; J96.21 Acute and chronic respiratory failure with hypoxia; J18.9 Pneumonia, unspecified organism; I50.33 Acute on chronic diastolic (congestive) heart failure; N39.0 Urinary tract infection, site not specified; R47.01 Aphasia; I16.0 Hypertensive urgency; D64.9 Anemia, unspecified; Z20.822 Contact with and (suspected) exposure to COVID-19; E11.51 Type 2 diabetes mellitus with diabetic peripheral angiopathy without gangrene; I11.0 Hypertensive heart disease with heart failure; I70.1 Atherosclerosis of renal artery; R13.10 Dysphagia, unspecified; D47.3 Essential (hemorrhagic) thrombocythemia; I27.20 Pulmonary hypertension, unspecified; Z86.73 Personal history of transient ischemic attack (TIA), and cerebral infarction without residual deficits; Z79.899 Other long term (current) drug therapy; Z98.2 Presence of cerebrospinal fluid drainage device; Z68.25 Body mass index [BMI] 25.0-25.9, adult; Z86.79 Personal history of other diseases of the circulatory system
CPT/HCPCS: 36415; 36600; 71045; 71275; 76604; 76937; 80048; 80053; 80061; 81003; 82040; 82375; 82550; 82553; 82728; 82805; 82962; 83036; 83605; 83615; 83735; 83880; 84134; 84145; 84484; 85025; 85379; 85384; 86140; 87070; 87077; 87186; 87426; 87804; 92610; 93005; 93306; 93923; 93970; 94002; 94003; 94640; 94660; 94667; 97161; 99291; A6261; C1725; C9113; J0330; J0456; J0461; J0692; J0696; J1650; J1815; J1940; J2250; J3490; J7040; J7050; J7060; J7608; Q9967; A4315

== ENCOUNTER 2021-08-24 13:26 | Inpatient (IN) | payer MEDICARE, MEDICAID ==
[~2021-08-24] VITALS: Ht 153.4 cm; Wt 57.6 kg
[~2021-08-24 13:26] MED LIST: ALBU90AE INH; AMLO10TA4 MT; DICL100G31 TP; DULO20CA18 MT; FAMO-135 MT; FLUT1BLS INH; FURO-152 MT; GABA-533 MT; INSU100I13 SQ; LABE300T3 MT; LIP40 MT; MINO10TA MT; QUET25TA MT; TIOT18CA3 INH; TIZA4CAP6 MT
[2021-08-24] MEDS ORDERED: METHYLPREDNISOLONE SOD SUCC 125 MG/2 ML VIAL IV STA (13:41)
[2021-08-24] MEDS ORDERED: ALBUTEROL (0.083%) 2.5MG/3ML NEB HHN STA (13:41)
[2021-08-24] MEDS ORDERED: IPRATROPIUM BROMIDE (0.02%) 0.5MG/2.5ML NEB HHN STA (13:41)
[2021-08-24 14:08] LABS: BG BASE EXCESS -5.2 mmol/L (-2.0-2.0); BG CARBOXYHEMOGLOBIN 2.6 % (0.5-1.5); BG DEOXYHEMOGLOBIN 0.6 % (0.0-5.0); BG HCO3 ACT 17.5 mmol/L (22.0-26.0); BG METHEMOGLOBIN 0.2 % (0.0-1.5); BG OXYGEN SATURATION 99.4 % (92.0-98.5); BG OXYHEMOGLOBIN 96.6 % (94.0-97.0); BG PCO2 26.3 mmHg (35.0-45.0); BG PO2 145.6 mmHg (75.0-100.0); BG SAMPLE SITE RIGHT BRACHIAL; BG TOTAL HEMOGLOBIN 12.9 g/dL (12.0-18.0); BG VENT MODE MASK - BIPAP
[2021-08-24 14:26] LABS: HEMATOCRIT. 37.1 % (36.0-48.0); HEMOGLOBIN. 12.2 g/dL (12.0-16.0); MEAN CORPUSCULAR HEMOGLOBIN 29.8 pg (28.0-32.0); MEAN CORPUSCULAR VOLUME 90.6 fL (81.0-99.0); MEAN PLATELET VOLUME 8.5 fl (7.4-10.4); PLATELET 538 x1000/uL (130-400); RED BLOOD CELL COUNT 4.09 mill/uL (4.2-5.4); RED CELL DISTRIBUTION WIDTH 13.3 % (11.6-14.6)
[2021-08-24 14:34] LABS: CHLORIDE 108 mEq/L (98-107)
[2021-08-24 14:47] LABS: PLATELET ESTIMATE INCREASED
[2021-08-24] MEDS ORDERED: AZITHROMYCIN 500MG/250ML 250 ML IV ONE (15:45)
[2021-08-24] MEDS ORDERED: DEXTROSE 50% WATER 50ML SYRINGE IV ONE (15:45)
[2021-08-24] MEDS ORDERED: HYDRALAZINE 20MG/ML VIAL IV ONE (15:45)
[2021-08-24] MEDS ORDERED: INSULIN REGULAR (HUMULIN R) 300UNITS/3ML VIAL IV ONE (15:45)
[2021-08-24] MEDS ORDERED: AMLODIPINE 10MG TABLET PO ONE (15:45)
[2021-08-24] MEDS ORDERED: ALBUTEROL (0.083%) 2.5MG/3ML NEB HHN ONE (15:45)
[2021-08-24] MEDS ORDERED: CEFTRIAXONE 1 G PREMIX 50 ML IV ONE ×3 (15:45→18:30)
[2021-08-24] MEDS ORDERED: SODIUM CHLORIDE 0.9% 1000ML BAG (SEPSIS BOLUS) IV ONE (18:15)
[2021-08-24] MEDS ORDERED: KETOROLAC 30MG/ML VIAL IV ONE (18:15)
[2021-08-24 18:28] LABS: CLARITY URINE TURBID (CLEAR); COLOR URINE YELLOW (YELLOW); KETONES URINE NEGATIVE (NEGATIVE); LEUKOCYTE ESTERASE URINE 3+ (NEGATIVE); NITRITE URINE NEGATIVE (NEGATIVE); OCCULT BLOOD URINE 1+ (NEGATIVE); PH URINE 8.5 (4.5-8.0); PROTEIN URINE 3+ (NEGATIVE); SPECIFIC GRAVITY URINE 1.008 (1.005-1.030); UROBILINOGEN URINE 0.2 E.U./dL (0.2-1.0)
[2021-08-24 18:30] LABS: BG CARBOXYHEMOGLOBIN 1.5 % (0.5-1.5); BG DEOXYHEMOGLOBIN 0.3 % (0.0-5.0); BG HCO3 ACT 14.3 mmol/L (22.0-26.0); BG METHEMOGLOBIN 0.3 % (0.0-1.5); BG OXYGEN SATURATION 99.7 % (92.0-98.5); BG OXYHEMOGLOBIN 97.9 % (94.0-97.0); BG PCO2 26.8 mmHg (35.0-45.0); BG PH 7.344 (7.350-7.450); BG PO2 224.5 mmHg (75.0-100.0); BG SAMPLE SITE RIGHT BRACHIAL; BG TOTAL HEMOGLOBIN 11.2 g/dL (12.0-18.0); BG VENT MODE MASK - BIPAP
[2021-08-24] MEDS ORDERED: KETOROLAC 30MG/ML VIAL IV SCH (18:30)
[2021-08-24] MEDS ORDERED: DIPHENHYDRAMINE 50MG/ML VIAL IV PRN (18:30)
[2021-08-24] MEDS ORDERED: ONDANSETRON HCL 4MG/2ML INJ IV PRN (18:30)
[2021-08-24] MEDS ORDERED: HYDROCODONE/ACETAMINOPHEN 5/325MG TABLET PO PRN (18:30)
[2021-08-24] MEDS ORDERED: NA PHOS,M-B/NA PHOS,DI-BA ENEMA 118ML PR PRN (18:30)
[2021-08-24] MEDS ORDERED: ACETAMINOPHEN 650MG/20.3ML UDC GT PRN (18:30)
[2021-08-24] MEDS ORDERED: IPRATROPIUM/ALBUTEROL 0.5-3(2.5)MG/3ML NEB HHN PRN (18:30)
[2021-08-24] MEDS: ENOXAPARIN 30MG/0.3ML SYR SUBCUT SCH (20:00)
[2021-08-24] MEDS: IPRATROPIUM/ALBUTEROL 0.5-3(2.5)MG/3ML NEB HHN SCH (20:34)
[2021-08-24 21:30] VITALS: BP 131/92
[2021-08-24 21:44] VITALS: BP 131/92
[2021-08-25] VITALS (12 sets, daily range): BP systolic 101–187; BP diastolic 57–114
[2021-08-25] MEDS: METHYLPREDNISOLONE SOD SUCC 125 MG/2 ML VIAL IV SCH ×2 (01:49→09:25)
[2021-08-25] MEDS: IPRATROPIUM/ALBUTEROL 0.5-3(2.5)MG/3ML NEB HHN SCH ×4 (02:45→20:49)
[2021-08-25 06:47] LABS: HEMATOCRIT. 29.9 % (36.0-48.0); HEMOGLOBIN. 9.7 g/dL (12.0-16.0); MEAN CORPUSCULAR HEMOGLOBIN 29.4 pg (28.0-32.0); MEAN CORPUSCULAR VOLUME 90.7 fL (81.0-99.0); MEAN PLATELET VOLUME 8.8 fl (7.4-10.4); PLATELET 411 x1000/uL (130-400); RED CELL DISTRIBUTION WIDTH 13.6 % (11.6-14.6)
[2021-08-25 06:49] LABS: CHLORIDE 111 mEq/L (98-107)
[2021-08-25 07:00] LABS: LDL CHOLESTEROL 68 mg/dL (5-100)
[2021-08-25 07:01] LABS: HDL CHOLESTEROL 33 mg/dL (40-59)
[2021-08-25 10:36] LABS: BG BASE EXCESS -6.3 mmol/L (-2.0-2.0); BG DEOXYHEMOGLOBIN 6.8 % (0.0-5.0); BG FRACTION INSPIRED OXYGEN 32; BG HCO3 ACT 17.3 mmol/L (22.0-26.0); BG METHEMOGLOBIN 0.2 % (0.0-1.5); BG PH 7.408 (7.350-7.450); BG SAMPLE SITE RIGHT RADIAL; BG TOTAL HEMOGLOBIN 10.4 g/dL (12.0-18.0); BG VENT MODE NASAL CANNULA
[2021-08-25] MEDS ORDERED: SODIUM CHLORIDE 0.45% 1,000 ML IV SCH (11:15)
[2021-08-25] MEDS ORDERED: INFLUENZA VACCINE 05/PF 0.5 ML SYRINGE IM ONE (11:15)
[2021-08-25] MEDS ORDERED: SODIUM BICARBONATE 8.4% 1 MEQ/ML 50ML SYR IV NR (11:15)
[2021-08-25] MEDS ORDERED: PNEUMOCOCCAL 23-VAL P-SAC VAC 0.5 ML IM ONE (11:15)
[2021-08-25] MEDS: DILTIAZEM HCL 30MG TABLET PO SCH ×3 (11:43→23:33)
[2021-08-25 12:30] LABS: PLATELET ESTIMATE SLIGHTLY INCREASED
[2021-08-25] MEDS: CEFEPIME 1,000 MG in DEXTROSE 5% WATER 50 ML IV SCH (14:18)
[2021-08-25] MEDS: SODIUM BICARBONATE 100 MEQ in SODIUM CHLORIDE 0.45% 1,000 ML IV SCH (15:32)
[2021-08-25 17:33] LABS: CLARITY URINE TURBID (CLEAR); COLOR URINE YELLOW (YELLOW); KETONES URINE NEGATIVE (NEGATIVE); LEUKOCYTE ESTERASE URINE 3+ (NEGATIVE); NITRITE URINE NEGATIVE (NEGATIVE); OCCULT BLOOD URINE 3+ (NEGATIVE); PH URINE 5.5 (4.5-8.0); PROTEIN URINE 2+ (NEGATIVE); SPECIFIC GRAVITY URINE 1.014 (1.005-1.030); UROBILINOGEN URINE 0.2 E.U./dL (0.2-1.0)
[2021-08-25] MEDS ORDERED: CEFTRIAXONE 1,000 MG in DEXTROSE 5% WATER 50 ML IV SCH (18:00)
[2021-08-25 20:55] LABS: HEMATOCRIT. 29.6 % (36.0-48.0); HEMOGLOBIN. 9.6 g/dL (12.0-16.0); MEAN CORPUSCULAR HEMOGLOBIN 29.6 pg (28.0-32.0); MEAN CORPUSCULAR VOLUME 90.8 fL (81.0-99.0); MEAN PLATELET VOLUME 8.6 fl (7.4-10.4); PLATELET 417 x1000/uL (130-400); RED BLOOD CELL COUNT 3.26 mill/uL (4.2-5.4); RED CELL DISTRIBUTION WIDTH 13.4 % (11.6-14.6)
[2021-08-25] MEDS ORDERED: METHYLPREDNISOLONE SOD SUCC 125 MG/2 ML VIAL IV SCH (21:00)
[2021-08-25 21:10] LABS: CHLORIDE 112 mEq/L (98-107)
[2021-08-25] MEDS: ENOXAPARIN 30MG/0.3ML SYR SUBCUT SCH (21:46)
[2021-08-25 22:56] LABS: PLATELET ESTIMATE SLIGHTLY INCREASED
[2021-08-26] VITALS (12 sets, daily range): BP systolic 125–163; BP diastolic 58–85
[2021-08-26] MEDS: IPRATROPIUM/ALBUTEROL 0.5-3(2.5)MG/3ML NEB HHN SCH ×4 (00:57→21:48)
[2021-08-26] MEDS: SODIUM BICARBONATE 100 MEQ in SODIUM CHLORIDE 0.45% 1,000 ML IV SCH (05:44)
[2021-08-26] MEDS: DILTIAZEM HCL 30MG TABLET PO SCH ×4 (05:44→23:11)
[2021-08-26 06:40] LABS: HEMATOCRIT. 27.2 % (36.0-48.0); HEMOGLOBIN. 8.9 g/dL (12.0-16.0); MEAN CORPUSCULAR HEMOGLOBIN 29.3 pg (28.0-32.0); MEAN CORPUSCULAR VOLUME 89.7 fL (81.0-99.0); PLATELET 382 x1000/uL (130-400); RED BLOOD CELL COUNT 3.04 mill/uL (4.2-5.4); RED CELL DISTRIBUTION WIDTH 13.5 % (11.6-14.6)
[2021-08-26 12:10] LABS: PLATELET ESTIMATE NORMAL
[2021-08-26] MEDS: CEFEPIME 1,000 MG in DEXTROSE 5% WATER 50 ML IV SCH (13:14)
[2021-08-26] MEDS ORDERED: DEXTROSE 50% WATER 50ML SYRINGE IV PRN (17:15)
[2021-08-26] MEDS: INSULIN LISPRO 100 UNITS/ML SUBCUT SCH ×2 (18:06→20:50)
[2021-08-26] MEDS: BLOOD SUGAR DIAGNOSTIC STRIP TEST SCH (20:35)
[2021-08-27] VITALS (12 sets, daily range): BP systolic 112–172; BP diastolic 47–79
[2021-08-27] MEDS: SODIUM BICARBONATE 100 MEQ in SODIUM CHLORIDE 0.45% 1,000 ML IV SCH (00:53)
[2021-08-27] MEDS: CLONIDINE 0.1MG TABLET PO PRN ×3 (02:16→19:57)
[2021-08-27] MEDS: IPRATROPIUM/ALBUTEROL 0.5-3(2.5)MG/3ML NEB HHN SCH ×4 (02:47→20:51)
[2021-08-27] MEDS: DILTIAZEM HCL 30MG TABLET PO SCH ×4 (05:21→23:14)
[2021-08-27 06:41] LABS: CHLORIDE 113 mEq/L (98-107)
[2021-08-27 06:46] LABS: PROTHROMBIN TIME 10.9 sec (9.6-11.0); TOTAL IRON BINDING CAPACITY 187 ug/dL (250-450)
[2021-08-27 06:48] LABS: HEMATOCRIT. 24.5 % (36.0-48.0); HEMOGLOBIN. 8.1 g/dL (12.0-16.0); MEAN CORPUSCULAR HEMOGLOBIN 29.9 pg (28.0-32.0); MEAN CORPUSCULAR VOLUME 89.9 fL (81.0-99.0); MEAN PLATELET VOLUME 9.1 fl (7.4-10.4); PLATELET 298 x1000/uL (130-400); RED BLOOD CELL COUNT 2.72 mill/uL (4.2-5.4); RED CELL DISTRIBUTION WIDTH 13.3 % (11.6-14.6)
[2021-08-27 07:00] LABS: FOLIC ACID (FOLATE) SERUM 5.3 ng/mL (>5.38)
[2021-08-27] MEDS: BLOOD SUGAR DIAGNOSTIC STRIP TEST SCH ×4 (07:30→21:09)
[2021-08-27] MEDS ORDERED: METHYLPREDNISOLONE SOD SUCC 125 MG/2 ML VIAL IV SCH (09:00)
[2021-08-27] MEDS: MAGNESIUM/ALUMINUM HYDROXIDE/SIMETHICONE 30ML UDC PO PRN ×2 (09:02→09:10)
[2021-08-27] MEDS: INSULIN LISPRO 100 UNITS/ML SUBCUT SCH ×4 (09:15→21:27)
[2021-08-27] MEDS: FOLIC ACID/VITAMIN B COMP W-C TABLET PO SCH (12:45)
[2021-08-27] MEDS: CEFEPIME 1,000 MG in DEXTROSE 5% WATER 50 ML IV SCH (12:46)
[2021-08-27] MEDS: PANTOPRAZOLE SODIUM 40 MG/VIAL IV SCH ×2 (12:46→21:09)
[2021-08-27] MEDS: BACITRACIN 15GM TUBE TOP SCH ×2 (13:12→21:09)
[2021-08-27] MEDS: DEXTROSE 5% WATER 1,000 ML IV SCH (13:12)
[2021-08-27 19:18] LABS: PLATELET ESTIMATE NORMAL
[2021-08-28] VITALS (12 sets, daily range): BP systolic 113–194; BP diastolic 55–89
[2021-08-28] MEDS: AMPICILLIN SOD/SULBACTAM NA 3 G in SODIUM CHLORIDE 0.9% 100 ML IV SCH ×5 (00:40→23:26)
[2021-08-28] MEDS: IPRATROPIUM/ALBUTEROL 0.5-3(2.5)MG/3ML NEB HHN SCH ×3 (03:01→20:48)
[2021-08-28] MEDS: CLONIDINE 0.1MG TABLET PO PRN ×2 (04:35→14:41)
[2021-08-28] MEDS: DEXTROSE 5% WATER 1,000 ML IV SCH ×2 (04:35→12:34)
[2021-08-28] MEDS: DILTIAZEM HCL 30MG TABLET PO SCH ×4 (05:30→23:25)
[2021-08-28] MEDS: BLOOD SUGAR DIAGNOSTIC STRIP TEST SCH ×4 (07:30→20:39)
[2021-08-28] MEDS: INSULIN LISPRO 100 UNITS/ML SUBCUT SCH ×4 (08:00→20:39)
[2021-08-28] MEDS ORDERED: PREDNISOLONE 15 MG/5 ML ORAL SYRINGE PO SCH (09:00)
[2021-08-28] MEDS ORDERED: METHYLPREDNISOLONE SOD SUCC 125 MG/2 ML VIAL IV SCH (09:00)
[2021-08-28 09:12] LABS: HEMATOCRIT. 28.6 % (36.0-48.0); HEMOGLOBIN. 9.3 g/dL (12.0-16.0); MEAN CORPUSCULAR HEMOGLOBIN 29.4 pg (28.0-32.0); MEAN CORPUSCULAR VOLUME 90.9 fL (81.0-99.0); MEAN PLATELET VOLUME 8.1 fl (7.4-10.4); PLATELET 344 x1000/uL (130-400); RED BLOOD CELL COUNT 3.15 mill/uL (4.2-5.4); RED CELL DISTRIBUTION WIDTH 13.3 % (11.6-14.6)
[2021-08-28] MEDS: BACITRACIN 15GM TUBE TOP SCH ×2 (09:13→20:39)
[2021-08-28] MEDS: FOLIC ACID/VITAMIN B COMP W-C TABLET PO SCH (09:13)
[2021-08-28] MEDS: AMLODIPINE 10MG TABLET PO SCH (09:13)
[2021-08-28] MEDS: PANTOPRAZOLE SODIUM 40 MG/VIAL IV SCH ×2 (09:13→20:38)
[2021-08-28 09:25] LABS: INR 1.1; PROTHROMBIN TIME 11.8 sec (9.6-11.0)
[2021-08-28 09:31] LABS: CHLORIDE 110 mEq/L (98-107)
[2021-08-28] MEDS ORDERED: NALOXONE HCL 0.4MG/ML VIAL IV PRN (15:15)
[2021-08-28] MEDS ORDERED: POTASSIUM CHLORIDE 20MEQ/PACKET PO NR (16:00)
[2021-08-28] MEDS: BISACODYL 5MG TABLET PO PRN (16:01)
[2021-08-28 17:32] LABS: PLATELET ESTIMATE NORMAL
[2021-08-29] VITALS (10 sets, daily range): BP systolic 133–172; BP diastolic 63–119
[2021-08-29] MEDS: IPRATROPIUM/ALBUTEROL 0.5-3(2.5)MG/3ML NEB HHN SCH ×4 (02:12→21:11)
[2021-08-29] MEDS: DEXTROSE 5% WATER 1,000 ML IV SCH (03:00)
[2021-08-29] MEDS: AMPICILLIN SOD/SULBACTAM NA 3 G in SODIUM CHLORIDE 0.9% 100 ML IV SCH ×4 (05:45→23:46)
[2021-08-29] MEDS: DILTIAZEM HCL 30MG TABLET PO SCH ×4 (05:46→23:48)
[2021-08-29 07:14] LABS: INR 1.1; PROTHROMBIN TIME 11.4 sec (9.6-11.0)
[2021-08-29] MEDS: BLOOD SUGAR DIAGNOSTIC STRIP TEST SCH ×4 (07:30→21:08)
[2021-08-29 07:43] LABS: CHLORIDE 107 mEq/L (98-107)
[2021-08-29] MEDS: INSULIN LISPRO 100 UNITS/ML SUBCUT SCH ×4 (08:00→21:00)
[2021-08-29] MEDS: PANTOPRAZOLE SODIUM 40 MG/VIAL IV SCH ×2 (09:20→20:41)
[2021-08-29] MEDS: BACITRACIN 15GM TUBE TOP SCH ×2 (09:21→20:41)
[2021-08-29] MEDS: AMLODIPINE 10MG TABLET PO SCH (09:21)
[2021-08-29] MEDS: FOLIC ACID/VITAMIN B COMP W-C TABLET PO SCH (09:21)
[2021-08-29] MEDS: PREDNISOLONE 15 MG/5 ML ORAL SYRINGE PO SCH (09:22)
[2021-08-29] MEDS ORDERED: MAGNESIUM 4 G PREMIX 100 ML IV SCH (09:30)
[2021-08-29] MEDS: BISACODYL 5MG TABLET PO PRN (10:01)
[2021-08-29] MEDS: CLONIDINE 0.1MG TABLET PO PRN (10:14)
[2021-08-29 10:27] LABS: HEMOGLOBIN. 10.1 g/dL (12.0-16.0); MEAN CORPUSCULAR HEMOGLOBIN 29.9 pg (28.0-32.0); MEAN CORPUSCULAR VOLUME 89.3 fL (81.0-99.0); MEAN PLATELET VOLUME 8.3 fl (7.4-10.4); PLATELET 381 x1000/uL (130-400); RED BLOOD CELL COUNT 3.36 mill/uL (4.2-5.4); RED CELL DISTRIBUTION WIDTH 13.1 % (11.6-14.6)
[2021-08-29 10:50] LABS: CHLORIDE 105 mEq/L (98-107)
[2021-08-29 12:58] LABS: PLATELET ESTIMATE NORMAL
[2021-08-30] VITALS (7 sets, daily range): BP systolic 140–164; BP diastolic 70–97
[2021-08-30] MEDS: AMPICILLIN SOD/SULBACTAM NA 3 G in SODIUM CHLORIDE 0.9% 100 ML IV SCH ×3 (05:39→17:30)
[2021-08-30] MEDS: DILTIAZEM HCL 30MG TABLET PO SCH ×4 (05:44→23:10)
[2021-08-30 06:33] LABS: HEMATOCRIT. 26.8 % (36.0-48.0); HEMOGLOBIN. 8.8 g/dL (12.0-16.0); MEAN CORPUSCULAR HEMOGLOBIN 29.5 pg (28.0-32.0); MEAN PLATELET VOLUME 8.3 fl (7.4-10.4); PLATELET 331 x1000/uL (130-400); RED BLOOD CELL COUNT 2.98 mill/uL (4.2-5.4); RED CELL DISTRIBUTION WIDTH 13.7 % (11.6-14.6)
[2021-08-30] MEDS: INSULIN LISPRO 100 UNITS/ML SUBCUT SCH ×4 (07:24→20:40)
[2021-08-30] MEDS: BLOOD SUGAR DIAGNOSTIC STRIP TEST SCH ×4 (07:24→20:40)
[2021-08-30] MEDS: IPRATROPIUM/ALBUTEROL 0.5-3(2.5)MG/3ML NEB HHN SCH ×3 (07:40→20:33)
[2021-08-30] MEDS: PANTOPRAZOLE SODIUM 40 MG/VIAL IV SCH ×2 (08:15→21:04)
[2021-08-30] MEDS: BACITRACIN 15GM TUBE TOP SCH ×2 (08:16→21:04)
[2021-08-30] MEDS: AMLODIPINE 10MG TABLET PO SCH (08:16)
[2021-08-30] MEDS: PREDNISOLONE 15 MG/5 ML ORAL SYRINGE PO SCH (08:16)
[2021-08-30] MEDS: FOLIC ACID/VITAMIN B COMP W-C TABLET PO SCH (08:17)
[2021-08-30 08:51] LABS: CHLORIDE 104 mEq/L (98-107)
[2021-08-30] MEDS ORDERED: BISACODYL 5MG TABLET PO NR (12:45)
[2021-08-30] MEDS ORDERED: BISACODYL 10MG SUPP PR NR (12:45)
[2021-08-30] MEDS: LACTULOSE 20G/30ML UDC PO SCH ×2 (13:56→21:04)
[2021-08-30 19:18] LABS: PLATELET ESTIMATE NORMAL
[2021-08-30] MEDS: CLONIDINE 0.1MG TABLET PO PRN (19:25)
== END 2021-08-30 23:57 | DRG 853 ==
LOC: ER 13:33 → ENRESERV 20:10 → 5EST 23:38
PROVIDERS: ADMIT Family Medicine; ATTEND Family Medicine
PROC: 5A09357 Assistance with Respiratory Ventilation, Less than 24 Consecutive Hours, Continuous Positive Airway Pressure (ICD-10-PCS; 2021-08-24)
PROC: 0KBP0ZZ Excision of Left Hip Muscle, Open Approach (ICD-10-PCS; principal; 2021-08-28)
PROC: 0KBN0ZZ Excision of Right Hip Muscle, Open Approach (ICD-10-PCS; 2021-08-28)
DX: A41.59 Other Gram-negative sepsis (principal); L89.154 Pressure ulcer of sacral region, stage 4; J18.9 Pneumonia, unspecified organism; N17.0 Acute kidney failure with tubular necrosis; J96.21 Acute and chronic respiratory failure with hypoxia; G93.41 Metabolic encephalopathy; E43 Unspecified severe protein-calorie malnutrition; J44.0 Chronic obstructive pulmonary disease with (acute) lower respiratory infection; J44.1 Chronic obstructive pulmonary disease with (acute) exacerbation; N39.0 Urinary tract infection, site not specified; E87.0 Hyperosmolality and hypernatremia; N18.4 Chronic kidney disease, stage 4 (severe); E86.0 Dehydration; F03.90 Unspecified dementia, unspecified severity, without behavioral disturbance, psychotic disturbance, mood disturbance, and anxiety; R65.20 Severe sepsis without septic shock; Z20.822 Contact with and (suspected) exposure to COVID-19; I12.9 Hypertensive chronic kidney disease with stage 1 through stage 4 chronic kidney disease, or unspecified chronic kidney disease; E11.22 Type 2 diabetes mellitus with diabetic chronic kidney disease; D64.9 Anemia, unspecified; I49.3 Ventricular premature depolarization; K59.00 Constipation, unspecified; R32 Unspecified urinary incontinence; Z74.01 Bed confinement status; Z68.24 Body mass index [BMI] 24.0-24.9, adult
CPT/HCPCS: 36415; 36600; 71045; 74018; 76770; 80048; 80053; 80061; 81003; 82040; 82270; 82375; 82607; 82728; 82746; 82805; 82962; 83036; 83540; 83550; 83605; 83735; 83880; 84134; 84443; 84484; 85025; 85044; 87077; 87186; 87426; 90686; 90732; 93005; 93306; 94640; 99291; C1893; C9113; J0295; J0360; J0456; J0692; J0696; J1200; J1650; J1815; J1885; J2930; J3475; J3490; J7050; J7060; J7070; A4315

== ENCOUNTER 2021-09-25 01:41 | Inpatient (IN) | payer MEDICARE, MEDICAID ==
[~2021-09-25] VITALS: Ht 165.1 cm; Wt 63.0 kg
[2021-09-25] MEDS ORDERED: PIPERACILLIN/TAZ 3.375G PREMIX 50 ML IV ONE (02:00)
[2021-09-25] MEDS ORDERED: VANCOMYCIN 1 G PREMIX 200 ML IV ONE (02:00)
[2021-09-25] MEDS ORDERED: SODIUM CHLORIDE 0.9% 1000ML BAG (SEPSIS BOLUS) IV ONE (02:00)
[2021-09-25] MEDS ORDERED: PROPOFOL 10MG/ML 100ML 100 ML IV STA (02:38)
[2021-09-25] MEDS ORDERED: DILTIAZEM HCL 5MG/ML 5ML VIAL IV ONE (02:45)
[2021-09-25 02:55] LABS: HEMATOCRIT. 44.7 % (36.0-48.0); HEMOGLOBIN. 14.1 g/dL (12.0-16.0); MEAN CORPUSCULAR HEMOGLOBIN 28.7 pg (28.0-32.0); MEAN CORPUSCULAR VOLUME 91.2 fL (81.0-99.0); MEAN PLATELET VOLUME 7.8 fl (7.4-10.4); PLATELET 388 x1000/uL (130-400); RED BLOOD CELL COUNT 4.91 mill/uL (4.2-5.4); RED CELL DISTRIBUTION WIDTH 16.9 % (11.6-14.6)
[2021-09-25 03:20] LABS: CHLORIDE 105 mEq/L (98-107)
[2021-09-25 03:23] LABS: BG BASE EXCESS -4.7 mmol/L (-2.0-2.0); BG CARBOXYHEMOGLOBIN 1.1 % (0.5-1.5); BG DEOXYHEMOGLOBIN 0.8 % (0.0-5.0); BG FRACTION INSPIRED OXYGEN 100; BG HCO3 ACT 20.1 mmol/L (22.0-26.0); BG METHEMOGLOBIN 0.2 % (0.0-1.5); BG OXYGEN SATURATION 99.2 % (92.0-98.5); BG OXYHEMOGLOBIN 97.9 % (94.0-97.0); BG PCO2 36.8 mmHg (35.0-45.0); BG PH 7.356 (7.350-7.450); BG PO2 146.8 mmHg (75.0-100.0); BG SAMPLE SITE RIGHT RADIAL; BG TOTAL HEMOGLOBIN 15.1 g/dL (12.0-18.0); BG VENT MODE VENT - AC
[2021-09-25 03:45] LABS: CLARITY URINE TURBID (CLEAR); COLOR URINE YELLOW (YELLOW); SPECIFIC GRAVITY URINE 1.012 (1.005-1.030)
[2021-09-25 03:46] LABS: PH URINE >=9.0 (4.5-8.0); PROTEIN URINE 3+ (NEGATIVE)
[2021-09-25 03:47] LABS: KETONES URINE NEGATIVE (NEGATIVE); NITRITE URINE POSITIVE (NEGATIVE); OCCULT BLOOD URINE NEGATIVE (NEGATIVE); UROBILINOGEN URINE 0.2 E.U./dL (0.2-1.0)
[2021-09-25 03:48] LABS: LEUKOCYTE ESTERASE URINE 2+ (NEGATIVE)
[2021-09-25 04:05] LABS: PLATELET ESTIMATE NORMAL
[2021-09-25 04:38] LABS: INR 1.3; PARTIAL THROMBOPLASTIN TIME 24.3 sec (23.4-31.0); PROTHROMBIN TIME 13.5 sec (9.6-11.0)
[2021-09-25] MEDS ORDERED: DOCUSATE SODIUM 100MG CAPSULE PO PRN (07:45)
[2021-09-25] MEDS ORDERED: ACETAMINOPHEN 325MG TABLET PO PRN (07:45)
[2021-09-25] MEDS ORDERED: ENOXAPARIN 40MG/0.4ML SYR SUBCUT SCH (07:45)
[2021-09-25] MEDS ORDERED: DEXTROSE 50% WATER 50ML SYRINGE IV PRN ×2 (07:45)
[2021-09-25] MEDS ORDERED: IPRATROPIUM/ALBUTEROL 0.5-3(2.5)MG/3ML NEB HHN SCH (07:45)
[2021-09-25] MEDS ORDERED: MAGNESIUM/ALUMINUM HYDROXIDE/SIMETHICONE 30ML UDC PO PRN (07:45)
[2021-09-25] MEDS ORDERED: HYDROCODONE/ACETAMINOPHEN 5/325MG TABLET PO PRN (07:45)
[2021-09-25] MEDS ORDERED: NALOXONE HCL 0.4MG/ML VIAL IV PRN (08:15)
[2021-09-25] MEDS ORDERED: IPRATROPIUM/ALBUTEROL 0.5-3(2.5)MG/3ML NEB HHN PRN (08:30)
[2021-09-25] MEDS ORDERED: ETOMIDATE 2MG/ML 10ML VIAL IV ONE (08:38)
[2021-09-25] MEDS ORDERED: SODIUM CHLORIDE 0.9% 10ML VIAL ONE (08:38)
[2021-09-25] MEDS ORDERED: VECURONIUM BROMIDE 10 MG/VIAL IV ONE (08:38)
[2021-09-25] MEDS ORDERED: ENOXAPARIN 30MG/0.3ML SYR SUBCUT SCH (09:00)
[2021-09-25] MEDS: AMIODARONE HCL 900 MG in DEXT 5% WATER 500 ML IV SCH ×2 (09:17→23:02)
[2021-09-25] MEDS: PIPERACILLIN/TAZOBACTAM 3.375 G in DEXTROSE 5% WATER 50 ML IV SCH ×2 (09:40→21:21)
[2021-09-25] MEDS: PANTOPRAZOLE SODIUM 40 MG/VIAL IV SCH (09:40)
[2021-09-25] MEDS: INSULIN LISPRO 100 UNITS/ML SUBCUT SCH ×3 (12:00→20:55)
[2021-09-25] MEDS: BLOOD SUGAR DIAGNOSTIC STRIP TEST SCH ×3 (12:13→20:54)
[2021-09-25] MEDS: ENOXAPARIN 80MG/0.8ML SYR SUBCUT SCH (12:20)
[2021-09-25 12:27] LABS: CREATINE KINASE 39 IU/L (26-192)
[2021-09-25 16:25] LABS: CREATINE KINASE MB FRACTION 1.8 ng/mL (0.5-3.6)
[2021-09-25] MEDS: IPRATROPIUM BROMIDE (0.02%) 0.5MG/2.5ML NEB HHN SCH (20:14)
[2021-09-26] VITALS (49 sets, daily range): BP systolic 105–175; BP diastolic 52–93
[2021-09-26] MEDS: IPRATROPIUM BROMIDE (0.02%) 0.5MG/2.5ML NEB HHN SCH ×4 (00:32→20:06)
[2021-09-26 00:55] LABS: CREATINE KINASE 21 IU/L (26-192); CREATINE KINASE MB FRACTION < 1.0 ng/mL (0.5-3.6)
[2021-09-26] MEDS: PROPOFOL 10MG/ML 100ML 100 ML IV PRN ×2 (01:29→18:55)
[2021-09-26 06:30] LABS: CHLORIDE 102 mEq/L (98-107)
[2021-09-26] MEDS: BLOOD SUGAR DIAGNOSTIC STRIP TEST SCH ×4 (06:33→18:27)
[2021-09-26 06:39] LABS: CREATINE KINASE 21 IU/L (26-192); T4 FREE 1.22 ng/dL (0.76-1.46)
[2021-09-26 06:41] LABS: PHOSPHORUS 5.4 mg/dL (2.5-4.9)
[2021-09-26 06:42] LABS: LDL CHOLESTEROL 65 mg/dL (5-100)
[2021-09-26 06:43] LABS: HEMOGLOBIN. 10.9 g/dL (12.0-16.0); MEAN CORPUSCULAR HEMOGLOBIN 28.5 pg (28.0-32.0); MEAN CORPUSCULAR VOLUME 89.2 fL (81.0-99.0); MEAN PLATELET VOLUME 8.6 fl (7.4-10.4); PLATELET 267 x1000/uL (130-400); RED BLOOD CELL COUNT 3.82 mill/uL (4.2-5.4); RED CELL DISTRIBUTION WIDTH 16.6 % (11.6-14.6)
[2021-09-26 06:44] LABS: HDL CHOLESTEROL 26 mg/dL (40-59)
[2021-09-26 06:46] LABS: CREATINE KINASE MB FRACTION < 1.0 ng/mL (0.5-3.6)
[2021-09-26 06:47] LABS: INR 1.2; PROTHROMBIN TIME 12.6 sec (9.6-11.0)
[2021-09-26] MEDS: INSULIN LISPRO 100 UNITS/ML SUBCUT SCH ×3 (06:56→18:20)
[2021-09-26] MEDS ORDERED: DEXTROSE 50% WATER 50ML SYRINGE IV NR (07:19)
[2021-09-26] MEDS: INSULIN REGULAR (HUMULIN R) 300UNITS/3ML VIAL IV NR ×2 (07:19→12:34)
[2021-09-26] MEDS ORDERED: SODIUM BICARBONATE 8.4% 1 MEQ/ML 50ML SYR IV NR (07:19)
[2021-09-26] MEDS ORDERED: SODIUM POLYSTYRENE SULFONATE 15 G/60 ML BOT PO NR (07:30)
[2021-09-26 08:09] LABS: ANTI-NUCLEAR ANTIBODIES DIRECT Negative (Negative)
[2021-09-26] MEDS ORDERED: PROPOFOL 10MG/ML 100ML 100 ML IV PRN (08:30)
[2021-09-26] MEDS ORDERED: CALCIUM CHLORIDE 1,000 MG in DEXT 5% WATER 90 ML IV NR (09:00)
[2021-09-26 09:27] LABS: PLATELET ESTIMATE NORMAL
[2021-09-26 10:02] LABS: BG BASE EXCESS -2.8 mmol/L (-2.0-2.0); BG CARBOXYHEMOGLOBIN 0.3 % (0.5-1.5); BG DEOXYHEMOGLOBIN 0.4 % (0.0-5.0); BG FRACTION INSPIRED OXYGEN 60; BG HCO3 ACT 20.9 mmol/L (22.0-26.0); BG METHEMOGLOBIN 0.3 % (0.0-1.5); BG OXYGEN SATURATION 99.6 % (92.0-98.5); BG PCO2 32.6 mmHg (35.0-45.0); BG PH 7.425 (7.350-7.450); BG PO2 226.6 mmHg (75.0-100.0); BG SAMPLE SITE RIGHT RADIAL; BG TOTAL HEMOGLOBIN 10.7 g/dL (12.0-18.0); BG TOTAL RESPIRATORY RATE 15 b/min; BG VENT MODE VENT - AC
[2021-09-26] MEDS: DEXT 5%/0.9% NACL 1,000 ML IV SCH ×2 (11:48→18:56)
[2021-09-26] MEDS: PANTOPRAZOLE SODIUM 40 MG/VIAL IV SCH (11:52)
[2021-09-26] MEDS: PIPERACILLIN/TAZOBACTAM 3.375 G in DEXTROSE 5% WATER 50 ML IV SCH ×2 (12:34→20:58)
[2021-09-26] MEDS: ENOXAPARIN 80MG/0.8ML SYR SUBCUT SCH (12:35)
[2021-09-26] MEDS ORDERED: VANCOMYCIN 750 MG PREMIX 150 ML IV SCH (13:00)
[2021-09-26] MEDS ORDERED: NOREPINEPHRINE 32 MG in DEXT 5% WATER 218 ML IV PRN (13:30)
[2021-09-26 16:16] LABS: CLARITY URINE TURBID (CLEAR); COLOR URINE RED (YELLOW); KETONES URINE TRACE (NEGATIVE); LEUKOCYTE ESTERASE URINE 3+ (NEGATIVE); NITRITE URINE NEGATIVE (NEGATIVE); OCCULT BLOOD URINE 3+ (NEGATIVE); PH URINE 6.5 (4.5-8.0); PROTEIN URINE 4+ (NEGATIVE); SPECIFIC GRAVITY URINE 1.019 (1.005-1.030); UROBILINOGEN URINE 0.2 E.U./dL (0.2-1.0)
[2021-09-26] MEDS: AMIODARONE HCL 900 MG in DEXT 5% WATER 482 ML IV SCH (18:53)
[2021-09-27] VITALS (100 sets, daily range): BP systolic 99–182; BP diastolic 41–118
[2021-09-27] MEDS: BLOOD SUGAR DIAGNOSTIC STRIP TEST SCH ×4 (00:33→18:28)
[2021-09-27] MEDS: INSULIN LISPRO 100 UNITS/ML SUBCUT SCH ×4 (00:42→18:00)
[2021-09-27] MEDS: IPRATROPIUM BROMIDE (0.02%) 0.5MG/2.5ML NEB HHN SCH ×4 (02:14→20:23)
[2021-09-27] MEDS: DEXT 5%/0.9% NACL 1,000 ML IV SCH ×2 (04:06→14:14)
[2021-09-27 06:16] LABS: HEMATOCRIT. 30.9 % (36.0-48.0); MEAN CORPUSCULAR HEMOGLOBIN 28.6 pg (28.0-32.0); MEAN CORPUSCULAR VOLUME 88.3 fL (81.0-99.0); MEAN PLATELET VOLUME 8.8 fl (7.4-10.4); PLATELET 248 x1000/uL (130-400); RED CELL DISTRIBUTION WIDTH 16.1 % (11.6-14.6)
[2021-09-27 06:34] LABS: FERRITIN 1236 ng/mL (10-291)
[2021-09-27 06:49] LABS: FOLIC ACID (FOLATE) SERUM > 20.00 ng/mL (>5.38)
[2021-09-27 07:40] LABS: PLATELET ESTIMATE NORMAL
[2021-09-27 07:58] LABS: BG BASE EXCESS -3.3 mmol/L (-2.0-2.0); BG CARBOXYHEMOGLOBIN 0.1 % (0.5-1.5); BG DEOXYHEMOGLOBIN 1.5 % (0.0-5.0); BG FRACTION INSPIRED OXYGEN 40; BG HCO3 ACT 20.6 mmol/L (22.0-26.0); BG METHEMOGLOBIN 0.1 % (0.0-1.5); BG OXYGEN SATURATION 98.5 % (92.0-98.5); BG OXYHEMOGLOBIN 98.3 % (94.0-97.0); BG PH 7.414 (7.350-7.450); BG PO2 116.5 mmHg (75.0-100.0); BG SAMPLE SITE RIGHT BRACHIAL; BG TOTAL HEMOGLOBIN 10.9 g/dL (12.0-18.0); BG TOTAL RESPIRATORY RATE 16 b/min; BG VENT MODE VENT - AC
[2021-09-27] MEDS ORDERED: PHENYLEPHRINE 100 MG in DEXT 5% WATER 240 ML IV PRN (08:15)
[2021-09-27] MEDS: PANTOPRAZOLE SODIUM 40 MG/VIAL IV SCH (08:36)
[2021-09-27] MEDS: PIPERACILLIN/TAZOBACTAM 3.375 G in DEXTROSE 5% WATER 50 ML IV SCH ×2 (08:37→21:10)
[2021-09-27] MEDS: METOPROLOL TARTRATE 25MG TABLET NG SCH ×2 (08:37→21:21)
[2021-09-27] MEDS: ENOXAPARIN 80MG/0.8ML SYR SUBCUT SCH (10:52)
[2021-09-27] MEDS ORDERED: VANCOMYCIN 750 MG PREMIX 150 ML IV NR (11:30)
[2021-09-27] MEDS ORDERED: BISACODYL 10MG SUPP PR NR (11:45)
[2021-09-27] MEDS: FENTANYL CITRATE/PF 2,500 MCG in SODIUM CHLORIDE 0.9% 200 ML IV PRN (12:26)
[2021-09-27] MEDS: METOCLOPRAMIDE HCL 10MG/2ML VIAL IV SCH (17:19)
[2021-09-27] MEDS: AMIODARONE HCL 900 MG in DEXT 5% WATER 482 ML IV SCH (17:38)
[2021-09-28] VITALS (87 sets, daily range): BP systolic 96–173; BP diastolic 49–105
[2021-09-28] MEDS: BLOOD SUGAR DIAGNOSTIC STRIP TEST SCH ×4 (00:50→18:52)
[2021-09-28] MEDS: METOCLOPRAMIDE HCL 10MG/2ML VIAL IV SCH ×4 (00:50→18:52)
[2021-09-28] MEDS: DEXT 5%/0.9% NACL 1,000 ML IV SCH ×3 (00:54→20:23)
[2021-09-28] MEDS: IPRATROPIUM BROMIDE (0.02%) 0.5MG/2.5ML NEB HHN SCH ×4 (01:39→19:54)
[2021-09-28] MEDS: INSULIN LISPRO 100 UNITS/ML SUBCUT SCH ×4 (06:00→18:00)
[2021-09-28 06:22] LABS: HEMATOCRIT. 25.3 % (36.0-48.0); MEAN CORPUSCULAR VOLUME 88.3 fL (81.0-99.0); MEAN PLATELET VOLUME 8.8 fl (7.4-10.4); PLATELET 197 x1000/uL (130-400); RED BLOOD CELL COUNT 2.87 mill/uL (4.2-5.4); RED CELL DISTRIBUTION WIDTH 16.2 % (11.6-14.6)
[2021-09-28] MEDS: METOPROLOL TARTRATE 25MG TABLET NG SCH ×2 (09:00→20:40)
[2021-09-28] MEDS: ENOXAPARIN 60MG/0.6ML SYR SUBCUT SCH (09:00)
[2021-09-28] MEDS: PANTOPRAZOLE SODIUM 40 MG/VIAL IV SCH (09:00)
[2021-09-28] MEDS: PIPERACILLIN/TAZOBACTAM 3.375 G in DEXTROSE 5% WATER 50 ML IV SCH ×2 (09:00→20:40)
[2021-09-28] MEDS: FERROUS SULFATE 325MG TABLET PO SCH ×2 (12:35→18:59)
[2021-09-28] MEDS: AMIODARONE HCL 900 MG in DEXT 5% WATER 482 ML IV SCH (12:36)
[2021-09-28] MEDS: FENTANYL CITRATE/PF 2,500 MCG in SODIUM CHLORIDE 0.9% 200 ML IV PRN (13:19)
[2021-09-28 14:31] LABS: PLATELET ESTIMATE NORMAL
[2021-09-29] VITALS (65 sets, daily range): BP systolic 105–198; BP diastolic 48–121
[2021-09-29] MEDS: METOCLOPRAMIDE HCL 10MG/2ML VIAL IV SCH ×5 (00:13→23:47)
[2021-09-29] MEDS: BLOOD SUGAR DIAGNOSTIC STRIP TEST SCH ×4 (00:13→23:46)
[2021-09-29] MEDS: CLONIDINE 0.1MG TABLET PO PRN ×2 (00:25→17:58)
[2021-09-29] MEDS: IPRATROPIUM BROMIDE (0.02%) 0.5MG/2.5ML NEB HHN SCH ×4 (02:02→20:38)
[2021-09-29] MEDS: DEXT 5%/0.9% NACL 1,000 ML IV SCH ×2 (05:11→15:30)
[2021-09-29 05:38] LABS: HEMOGLOBIN. 8.9 g/dL (12.0-16.0); MEAN CORPUSCULAR HEMOGLOBIN 28.5 pg (28.0-32.0); MEAN CORPUSCULAR VOLUME 89.4 fL (81.0-99.0); MEAN PLATELET VOLUME 8.8 fl (7.4-10.4); PLATELET 201 x1000/uL (130-400); RED BLOOD CELL COUNT 3.13 mill/uL (4.2-5.4); RED CELL DISTRIBUTION WIDTH 16.4 % (11.6-14.6)
[2021-09-29] MEDS ORDERED: POTASSIUM CHLORIDE 20MEQ/PACKET PO SCH (08:15)
[2021-09-29] MEDS: ENOXAPARIN 60MG/0.6ML SYR SUBCUT SCH (09:18)
[2021-09-29] MEDS: PIPERACILLIN/TAZOBACTAM 3.375 G in DEXTROSE 5% WATER 50 ML IV SCH ×2 (09:18→20:18)
[2021-09-29] MEDS: PANTOPRAZOLE SODIUM 40 MG/VIAL IV SCH (09:19)
[2021-09-29] MEDS: METOPROLOL TARTRATE 25MG TABLET NG SCH ×2 (09:19→20:18)
[2021-09-29] MEDS: FERROUS SULFATE 325MG TABLET PO SCH ×3 (09:19→17:58)
[2021-09-29] MEDS: FENTANYL CITRATE/PF 2,500 MCG in SODIUM CHLORIDE 0.9% 200 ML IV PRN (09:24)
[2021-09-29 11:10] LABS: PLATELET ESTIMATE NORMAL
[2021-09-29 11:13] LABS: BG CARBOXYHEMOGLOBIN 0.1 % (0.5-1.5); BG DEOXYHEMOGLOBIN 1.8 % (0.0-5.0); BG FRACTION INSPIRED OXYGEN 35; BG HCO3 ACT 20.1 mmol/L (22.0-26.0); BG METHEMOGLOBIN 0.2 % (0.0-1.5); BG OXYGEN SATURATION 98.2 % (92.0-98.5); BG OXYHEMOGLOBIN 97.9 % (94.0-97.0); BG PCO2 42.1 mmHg (35.0-45.0); BG PH 7.297 (7.350-7.450); BG PO2 113.4 mmHg (75.0-100.0); BG SAMPLE SITE RIGHT RADIAL; BG TOTAL HEMOGLOBIN 9.6 g/dL (12.0-18.0); BG VENT MODE VENT - AC
[2021-09-29] MEDS: INSULIN LISPRO 100 UNITS/ML SUBCUT SCH ×4 (11:53→23:46)
[2021-09-29] MEDS: AMIODARONE HCL 900 MG in DEXT 5% WATER 482 ML IV SCH (17:47)
[2021-09-30] VITALS (79 sets, daily range): BP systolic 125–198; BP diastolic 53–109
[2021-09-30] MEDS: IPRATROPIUM BROMIDE (0.02%) 0.5MG/2.5ML NEB HHN SCH ×4 (00:23→21:06)
[2021-09-30] MEDS: DEXT 5%/0.9% NACL 1,000 ML IV SCH (01:36)
[2021-09-30] MEDS: CLONIDINE 0.1MG TABLET PO PRN ×3 (02:54→15:54)
[2021-09-30] MEDS: METOCLOPRAMIDE HCL 10MG/2ML VIAL IV SCH ×4 (05:47→23:59)
[2021-09-30] MEDS: BLOOD SUGAR DIAGNOSTIC STRIP TEST SCH ×4 (05:47→23:59)
[2021-09-30] MEDS: INSULIN LISPRO 100 UNITS/ML SUBCUT SCH ×4 (05:48→23:59)
[2021-09-30 06:07] LABS: HEMATOCRIT. 26.4 % (36.0-48.0); HEMOGLOBIN. 8.6 g/dL (12.0-16.0); MEAN CORPUSCULAR HEMOGLOBIN 28.7 pg (28.0-32.0); MEAN CORPUSCULAR VOLUME 87.8 fL (81.0-99.0); MEAN PLATELET VOLUME 8.6 fl (7.4-10.4); PLATELET 205 x1000/uL (130-400); RED BLOOD CELL COUNT 3.01 mill/uL (4.2-5.4); RED CELL DISTRIBUTION WIDTH 16.3 % (11.6-14.6)
[2021-09-30 06:55] LABS: PHOSPHORUS 3.9 mg/dL (2.5-4.9)
[2021-09-30 08:16] LABS: BG BASE EXCESS -6.3 mmol/L (-2.0-2.0); BG CARBOXYHEMOGLOBIN 0.3 % (0.5-1.5); BG DEOXYHEMOGLOBIN 1.2 % (0.0-5.0); BG FRACTION INSPIRED OXYGEN 35; BG HCO3 ACT 18.4 mmol/L (22.0-26.0); BG METHEMOGLOBIN 0.1 % (0.0-1.5); BG OXYGEN SATURATION 98.8 % (92.0-98.5); BG OXYHEMOGLOBIN 98.4 % (94.0-97.0); BG PCO2 33.2 mmHg (35.0-45.0); BG PH 7.362 (7.350-7.450); BG PO2 133.9 mmHg (75.0-100.0); BG VENT MODE VENT - AC
[2021-09-30] MEDS ORDERED: MAGNESIUM 1 G PREMIX 100 ML IV ONE (08:30)
[2021-09-30] MEDS ORDERED: POTASSIUM CHLORIDE INJ 40 MEQ in DEXT 5% WATER 500 ML IV ONE (08:30)
[2021-09-30] MEDS ORDERED: POTASSIUM CHLORIDE 20MEQ/PACKET PO NR (08:43)
[2021-09-30] MEDS: PANTOPRAZOLE SODIUM 40 MG/VIAL IV SCH (09:29)
[2021-09-30] MEDS: FERROUS SULFATE 325MG TABLET PO SCH ×3 (09:29→17:35)
[2021-09-30] MEDS: ENOXAPARIN 60MG/0.6ML SYR SUBCUT SCH (09:29)
[2021-09-30] MEDS: SODIUM CHLORIDE 0.45% 1,000 ML IV SCH ×2 (09:35→21:55)
[2021-09-30] MEDS: KCL 20MEQ/100ML PREMIX 100 ML IV SCH ×2 (10:21→12:54)
[2021-09-30 10:27] LABS: PLATELET ESTIMATE NORMAL
[2021-09-30 11:10] LABS: BG BASE EXCESS -6.1 mmol/L (-2.0-2.0); BG CARBOXYHEMOGLOBIN 0.4 % (0.5-1.5); BG DEOXYHEMOGLOBIN 1.7 % (0.0-5.0); BG FRACTION INSPIRED OXYGEN 35; BG HCO3 ACT 18.5 mmol/L (22.0-26.0); BG METHEMOGLOBIN 0.2 % (0.0-1.5); BG OXYGEN SATURATION 98.3 % (92.0-98.5); BG OXYHEMOGLOBIN 97.7 % (94.0-97.0); BG PCO2 32.7 mmHg (35.0-45.0); BG PO2 116.9 mmHg (75.0-100.0); BG SAMPLE SITE RIGHT BRACHIAL; BG TOTAL HEMOGLOBIN 8.8 g/dL (12.0-18.0); BG TOTAL RESPIRATORY RATE 12 b/min; BG VENT MODE VENT - CPAP
[2021-09-30] MEDS: HYDRALAZINE HCL 25MG TABLET PO SCH ×2 (12:54→21:55)
[2021-09-30] MEDS: CEFEPIME 1,000 MG in DEXTROSE 5% WATER 50 ML IV SCH (17:35)
[2021-09-30] MEDS: HYDRALAZINE 20MG/ML VIAL IV PRN (17:50)
[2021-10-01] VITALS: BP 158/103
[2021-10-01 04:00] VITALS: BP 179/96
[2021-10-01] MEDS: INSULIN LISPRO 100 UNITS/ML SUBCUT SCH ×3 (06:00→16:58)
[2021-10-01] MEDS: HYDRALAZINE HCL 25MG TABLET PO SCH ×4 (06:25→22:01)
[2021-10-01] MEDS: METOCLOPRAMIDE HCL 10MG/2ML VIAL IV SCH ×4 (06:25→23:46)
[2021-10-01] MEDS: FERROUS SULFATE 325MG TABLET PO SCH ×3 (06:25→17:15)
[2021-10-01] MEDS: BLOOD SUGAR DIAGNOSTIC STRIP TEST SCH ×3 (06:25→16:58)
[2021-10-01 06:26] LABS: HEMATOCRIT. 27.9 % (36.0-48.0); HEMOGLOBIN. 9.3 g/dL (12.0-16.0); MEAN CORPUSCULAR HEMOGLOBIN 29.1 pg (28.0-32.0); MEAN CORPUSCULAR VOLUME 87.6 fL (81.0-99.0); MEAN PLATELET VOLUME 8.6 fl (7.4-10.4); PLATELET 231 x1000/uL (130-400); RED BLOOD CELL COUNT 3.19 mill/uL (4.2-5.4); RED CELL DISTRIBUTION WIDTH 16.5 % (11.6-14.6)
[2021-10-01 08:00] VITALS: BP 190/100
[2021-10-01] MEDS: PANTOPRAZOLE SODIUM 40 MG/VIAL IV SCH (08:30)
[2021-10-01] MEDS: ENOXAPARIN 60MG/0.6ML SYR SUBCUT SCH (08:31)
[2021-10-01] MEDS: IPRATROPIUM BROMIDE (0.02%) 0.5MG/2.5ML NEB HHN SCH ×3 (09:01→21:47)
[2021-10-01] MEDS: HYDRALAZINE 20MG/ML VIAL IV PRN (10:13)
[2021-10-01] MEDS: SODIUM CHLORIDE 0.45% 1,000 ML IV SCH (11:25)
[2021-10-01 12:00] VITALS: BP 147/68
[2021-10-01] MEDS ORDERED: CLONIDINE 0.1MG TABLET PO PRN (13:30)
[2021-10-01] MEDS: LACTOBACILLUS GG CAPSULE PO SCH (15:33)
[2021-10-01 16:00] VITALS: BP 158/88
[2021-10-01] MEDS: CEFEPIME 1,000 MG in DEXTROSE 5% WATER 50 ML IV SCH (17:15)
[2021-10-01 19:02] LABS: PLATELET ESTIMATE NORMAL
[2021-10-01 20:00] VITALS: BP 167/75
[2021-10-02] VITALS (8 sets, daily range): BP systolic 138–200; BP diastolic 59–94
[2021-10-02] MEDS: BLOOD SUGAR DIAGNOSTIC STRIP TEST SCH ×4 (00:15→17:16)
[2021-10-02] MEDS: SODIUM CHLORIDE 0.45% 1,000 ML IV SCH ×2 (01:16→15:07)
[2021-10-02] MEDS: IPRATROPIUM BROMIDE (0.02%) 0.5MG/2.5ML NEB HHN SCH ×4 (01:37→21:28)
[2021-10-02] MEDS: HYDRALAZINE 20MG/ML VIAL IV PRN ×2 (04:46→12:44)
[2021-10-02] MEDS: METOCLOPRAMIDE HCL 10MG/2ML VIAL IV SCH ×3 (05:30→17:28)
[2021-10-02] MEDS: HYDRALAZINE HCL 25MG TABLET PO SCH ×2 (05:31→15:08)
[2021-10-02] MEDS: INSULIN LISPRO 100 UNITS/ML SUBCUT SCH ×4 (06:00→17:17)
[2021-10-02] MEDS: FERROUS SULFATE 325MG TABLET PO SCH ×3 (06:10→17:27)
[2021-10-02 07:23] LABS: PHOSPHORUS 2.1 mg/dL (2.5-4.9)
[2021-10-02 07:25] LABS: HEMATOCRIT. 24.3 % (36.0-48.0); HEMOGLOBIN. 8.2 g/dL (12.0-16.0); MEAN CORPUSCULAR HEMOGLOBIN 29.3 pg (28.0-32.0); MEAN PLATELET VOLUME 8.7 fl (7.4-10.4); PLATELET 248 x1000/uL (130-400); RED CELL DISTRIBUTION WIDTH 16.4 % (11.6-14.6)
[2021-10-02] MEDS ORDERED: KCL 20MEQ/100ML PREMIX 100 ML IV ONE (08:15)
[2021-10-02] MEDS ORDERED: POTASSIUM CHLORIDE 20MEQ/PACKET PO NR (08:15)
[2021-10-02] MEDS ORDERED: DEXT 5%/0.45% NACL KCL 40MEQ/L 500 ML IV ONE (08:30)
[2021-10-02] MEDS: PANTOPRAZOLE SODIUM 40 MG/VIAL IV SCH (08:50)
[2021-10-02] MEDS: LACTOBACILLUS GG CAPSULE PO SCH (08:51)
[2021-10-02] MEDS ORDERED: KCL 20MEQ/100ML PREMIX 100 ML IV SCH (10:00)
[2021-10-02] MEDS ORDERED: SODIUM PHOS,M-BASIC-D-BASIC 20 MM in DEXT 5% WATER 243.3333 ML IV SCH (11:00)
[2021-10-02] MEDS ORDERED: MAGNESIUM 4 G PREMIX 100 ML IV SCH (11:00)
[2021-10-02] MEDS: ENOXAPARIN 60MG/0.6ML SYR SUBCUT SCH (12:42)
[2021-10-02] MEDS: CEFEPIME 1,000 MG in DEXTROSE 5% WATER 50 ML IV SCH (17:28)
[2021-10-02 19:20] LABS: PLATELET ESTIMATE NORMAL
== END 2021-10-02 21:46 | DRG 853 ==
LOC: ER 01:41 → MICUSO 05:39 → CVICU 09-26 11:36 → 7EST 09-30 20:36
PROVIDERS: ADMIT Family Medicine Adult Medicine; ATTEND Family Medicine Adult Medicine
PROC: 5A1955Z Respiratory Ventilation, Greater than 96 Consecutive Hours (ICD-10-PCS; principal; 2021-09-25)
PROC: 06HY33Z Insertion of Infusion Device into Lower Vein, Percutaneous Approach (ICD-10-PCS; 2021-09-25)
PROC: 0BH17EZ Insertion of Endotracheal Airway into Trachea, Via Natural or Artificial Opening (ICD-10-PCS; 2021-09-25)
PROC: 0KBP0ZZ Excision of Left Hip Muscle, Open Approach (ICD-10-PCS; 2021-09-28)
PROC: 0KBN0ZZ Excision of Right Hip Muscle, Open Approach (ICD-10-PCS; 2021-09-28)
DX: A41.59 Other Gram-negative sepsis (principal); L89.154 Pressure ulcer of sacral region, stage 4; G93.41 Metabolic encephalopathy; J15.6 Pneumonia due to other Gram-negative bacteria; J69.0 Pneumonitis due to inhalation of food and vomit; J96.01 Acute respiratory failure with hypoxia; N17.0 Acute kidney failure with tubular necrosis; R65.21 Severe sepsis with septic shock; E43 Unspecified severe protein-calorie malnutrition; J44.0 Chronic obstructive pulmonary disease with (acute) lower respiratory infection; J44.1 Chronic obstructive pulmonary disease with (acute) exacerbation; I50.32 Chronic diastolic (congestive) heart failure; I48.92 Unspecified atrial flutter; I48.20 Chronic atrial fibrillation, unspecified; N13.6 Pyonephrosis; K56.7 Ileus, unspecified; I82.502 Chronic embolism and thrombosis of unspecified deep veins of left lower extremity; I13.0 Hypertensive heart and chronic kidney disease with heart failure and stage 1 through stage 4 chronic kidney disease, or unspecified chronic kidney disease; E11.22 Type 2 diabetes mellitus with diabetic chronic kidney disease; E86.0 Dehydration; F03.90 Unspecified dementia, unspecified severity, without behavioral disturbance, psychotic disturbance, mood disturbance, and anxiety; Z20.822 Contact with and (suspected) exposure to COVID-19; E87.5 Hyperkalemia; D50.9 Iron deficiency anemia, unspecified; E87.6 Hypokalemia; N18.9 Chronic kidney disease, unspecified; Z79.4 Long term (current) use of insulin; Z79.899 Other long term (current) drug therapy; Z68.23 Body mass index [BMI] 23.0-23.9, adult; Z86.73 Personal history of transient ischemic attack (TIA), and cerebral infarction without residual deficits; Z78.1 Physical restraint status; Z79.01 Long term (current) use of anticoagulants; Z79.51 Long term (current) use of inhaled steroids
CPT/HCPCS: 36415; 36600; 71045; 74018; 76770; 78580; 80048; 80053; 80061; 80076; 80202; 81003; 82040; 82375; 82550; 82553; 82570; 82728; 82746; 82805; 82962; 83036; 83540; 83550; 83605; 83735; 83880; 84100; 84132; 84134; 84145; 84156; 84439; 84443; 84478; 84484; 85018; 85025; 85044; 85379; 86038; 86160; 87070; 87077; 87186; 87426; 92610; 93005; 93306; 93970; 94002; 94640; 99291; C9113; J0282; J0360; J0692; J1650; J1815; J2543; J2704; J2765; J3010; J3370; J3475; J3480; J3490; J7030; J7042; J7050; J7060; U0003; U0005